=== PATIENT | male | born 1980 | race Caucasian/White ===

== ENCOUNTER 2016-08-09 16:47 | Emergency (ER) | payer MEDICAID, OTHER ==
[~2016-08-09] VITALS: Ht 185.4 cm; Wt 93.0 kg
[~2016-08-09 16:47] MED LIST: CELE20TA PO; GABA300C3 PO; HYDR-3533 PO; INDO50 PO; PROM25SU8 PO; TRAZ150T75 PO
[2016-08-09 17:13] VITALS: BP 124/76; PULSE 75; RESP 16; TEMP 98.6; O2SAT 98
[2016-08-09 18:31] VITALS: BP 137/87; PULSE 55; RESP 16; O2SAT 100
[2016-08-09] MEDS ORDERED: CELE20TA PO (18:31)
--- NOTE | 2016-08-09 18:35 | PD ---
HPI Chief Complaint: GI Complaint Time Seen by Provider: 18:18 Travel History International Travel<30 days: No Contact w/Intl Traveler<30days: No Traveled to known affect area: No History of Present Illness HPI This 35-year-old female is complaining of abdominal pain. He says he had pain like this before related to diverticulitis. The pain is mostly in the left lower quadrant. Been going on for a day or so. There has been no vomiting. He 's been having diarrhea for a while. He is not aware of any fever or chills. He has no history of abdominal surgery. He says the pain is moderate severe at times. He says he has had some blood in his stool PFSH Past Medical History Hx Anticoagulant Therapy: No Depression: Yes Diabetes: No Diminished Hearing: No Diverticulitis: Yes Musculoskeletal: Yes (chronic right shoulder pain) Immunizations Current: Yes Tetanus Vaccination: < 5 Years Social History Alcohol Use: No (denies) Tobacco Use: Yes (8 cigs/day) Substance Use: No (HX of ETOH ABUSE) Allergies-Medications (Allergen,Severity, Reaction): Coded Allergies: Effexor (Verified Allergy, Severe, Hallucinations, 08/09/16) Toradol (Verified Allergy, Severe, FLUSHED FACE PER PT. MAKES HIM FEEL WIERD, 08/09/16) Reported Meds & Prescriptions Reported Meds & Active Scripts Active Reported Celexa (Citalopram Hydrobromide) 20 Mg Tab 20 Mg PO DAILY Review of Systems General / Constitutional: No: Fever, Chills Eyes: No: Diploplia, Blurred Vision HENT: No: Headaches, Vertigo Cardiovascular: No: Chest Pain or Discomfort, Palpitations Respiratory: No: Shortness of Breath Gastrointestinal: Positive: Diarrhea, Abdominal Pain Genitourinary: No: Urgency, Frequency Musculoskeletal: No: Myalgias, Arthralgias Skin: No Rash, No Itching Neurologic: No: Weakness Endocrine: No: Heat Intolerance Hematologic/Lymphatic: No: Easy Bruising Physical Exam Narrative GENERAL: Well-developed male SKIN: Warm and dry. HEAD: Atraumatic. Normocephalic. EYES: Pupils equal and round. No scleral icterus. No injection or drainage. ENT: No nasal bleeding or discharge. Mucous membranes pink and moist. NECK: Trachea midline. No JVD. CARDIOVASCULAR: Regular rate and rhythm. No murmur appreciated. RESPIRATORY: No accessory muscle use. Clear to auscultation. Breath sounds equal bilaterally. GASTROINTESTINAL: Abdomen soft, there is some left lower quadrant tenderness nondistended. Hepatic and splenic margins not palpable. Rectal exam stool is brown and guaiac-negative MUSCULOSKELETAL: No obvious deformities. No clubbing. No cyanosis. No edema. NEUROLOGICAL: Awake and alert. No obvious cranial nerve deficits. Motor grossly within normal limits. Normal speech. PSYCHIATRIC: Appropriate mood and affect; insight and judgment normal. Data Data Last Documented VS Vital Signs Date Time Temp Pulse Resp B/P Pulse Ox O2 Delivery O2 Flow Rate FiO2 08/09/16 19:28 56 18 121/64 96 Room Air 08/09/16 17:13 98.6 Orders Complete Blood Count With Diff (08/09/16 18:31) Comprehensive Metabolic Panel (08/09/16 18:31) Urinalysis - C+S If Indicated (08/09/16 18:31) Ct Abd/Pel W Iv Contrast(Rout) (08/09/16 18:31) Iv Access Insert/Monitor (08/09/16 18:31) Ecg Monitoring (08/09/16 18:31) Oximetry (08/09/16 18:31) Sodium Chloride 0.9% Flush (Ns Flush) (08/09/16 18:45) Sodium Chlor 0.9% 1000 Ml Inj (Ns 1000 M (08/09/16 18:45) Ondansetron Inj (Zofran Inj) (08/09/16 18:45) Hydromorphone Pf Inj (Dilaudid Pf Inj) (08/09/16 18:45) Iohexol 350 Inj (Omnipaque 350 Inj) (08/09/16 19:47) Hydromorphone Pf Inj (Dilaudid Pf Inj) (08/09/16 20:30) Amoxicil-Clavulanate (Augmentin) (08/09/16 21:00) Labs Laboratory Tests Test 08/09/16 18:40 White Blood Count 8.8 TH/MM3 Red Blood Count 5.14 MIL/MM3 Hemoglobin 15.4 GM/DL Hematocrit 45.9 % Mean Corpuscular Volume 89.2 FL Mean Corpuscular Hemoglobin 29.9 PG Mean Corpuscular Hemoglobin 33.5 % Concent Red Cell Distribution Width 12.1 % Platelet Count 190 TH/MM3 Mean Platelet Volume 8.9 FL Neutrophils (%) (Auto) 55.6 % Lymphocytes (%) (Auto) 34.1 % Monocytes (%) (Auto) 7.4 % Eosinophils (%) (Auto) 2.3 % Basophils (%) (Auto) 0.6 % Neutrophils # (Auto) 4.9 TH/MM3 Lymphocytes # (Auto) 3.0 TH/MM3 Monocytes # (Auto) 0.6 TH/MM3 Eosinophils # (Auto) 0.2 TH/MM3 Basophils # (Auto) 0.1 TH/MM3 CBC Comment DIFF FINAL Differential Comment Sodium Level 138 MEQ/L Potassium Level 3.8 MEQ/L Chloride Level 104 MEQ/L Carbon Dioxide Level 25.1 MEQ/L Anion Gap 9 MEQ/L Blood Urea Nitrogen 13 MG/DL Creatinine 1.10 MG/DL Estimat Glomerular Filtration 76 ML/MIN Rate Random Glucose 91 MG/DL Calcium Level 9.4 MG/DL Total Bilirubin 0.4 MG/DL Aspartate Amino Transf 13 U/L (AST/SGOT) Alanine Aminotransferase 31 U/L (ALT/SGPT) Alkaline Phosphatase 44 U/L Total Protein 7.4 GM/DL Albumin 4.1 GM/DL [facility] Medical Decision Making Medical Screen Exam Complete: Yes Emergency Medical Condition: Yes Medical Record Reviewed: Yes Differential Diagnosis Differential includes diverticulitis, nonspecific abdominal pain, bowel obstruction Narrative Course ED shows diverticulosis without focal inflammation. Patient has had pain like this in the past associated with diverticulitis and I will treat him for diverticulitis. Diagnosis Primary Impression: Diverticulitis Qualified Code: K57.32 - Diverticulitis of large intestine without perforation or abscess without bleeding Scripts Oxycodone-Acetaminophen (Percocet)5-325 mg Tab1-2 Tab PO Q6H PRN (PAIN) #20 TAB Ref 0 Prov:Wei Meléndez MD 08/09/16 Amoxicillin-Clavulanate (Augmentin)500-125 mg [id number] Mg PO Q8H #30 TAB Ref 0 Prov:Wei Mleéndez MD 08/09/16 Disposition: 01 DISCHARGE HOME Condition: Stable Wei Meléndez MD Aug 09, 2016 18:35
[2016-08-09] MEDS ORDERED: SODIUM CHLORIDE 0.9% FLUSH 5 ML FLUSH IVF PRN (18:45)
[2016-08-09] MEDS ORDERED: ONDANSETRON HCL 4 MG/2 ML VIAL IV PUSH ONE (18:45)
[2016-08-09] MEDS ORDERED: HYDROmorphone HCL PF 1 MG/ML VIAL IV PUSH ONE ×2 (18:45→20:30)
[2016-08-09] MEDS ORDERED: SODIUM CHLOR 0.9% 1000 ML INJ 1,000 ML IV ONE (18:45)
[2016-08-09 18:50] LABS: AUTOMATED NEUTROPHIL # 4.9 TH/MM3 (1.8-7.7); BASOPHIL # 0.1 TH/MM3 (0-0.2); BASOPHIL % 0.6 % (0.0-2.0); EOSINOPHIL # 0.2 TH/MM3 (0-0.4); EOSINOPHIL % 2.3 % (0.0-4.0); HEMATOCRIT 45.9 % (39.0-51.0); HEMO FLAGS DIFF FINAL; LYMPH % 34.1 % (9.0-44.0); MEAN CELL VOLUME 89.2 FL (80.0-100.0); MEAN CORPUSCULAR HEMOGLOBIN 29.9 PG (27.0-34.0); MEAN CORPUSCULAR HGB CONC 33.5 % (32.0-36.0); MONO % 7.4 % (0.0-8.0); NEUT % 55.6 % (16.0-70.0); PLATELET COUNT 190 TH/MM3 (150-450); RED BLOOD COUNT 5.14 MIL/MM3 (4.50-5.90); RED CELL DISTRIBUTION WIDTH 12.1 % (11.6-17.2); WHITE BLOOD COUNT 8.8 TH/MM3 (4.0-11.0)
[2016-08-09 18:56] VITALS: RESP 16; O2SAT 98
[2016-08-09 18:59] LABS: CHLORIDE 104 MEQ/L (98-107); POTASSIUM 3.8 MEQ/L (3.5-5.1); SODIUM (NA) 138 MEQ/L (136-145)
[2016-08-09 19:02] LABS: ANION GAP 9 MEQ/L (5-15); BICARBONATE 25.1 MEQ/L (21.0-32.0)
[2016-08-09 19:03] LABS: BLOOD UREA NITROGEN 13 MG/DL (7-18)
[2016-08-09 19:06] LABS: ALT (GPT) 31 U/L (12-78); AST (GOT) 13 U/L (15-37); GLOMERULAR FILTRATION RATE 76 ML/MIN (>89)
[2016-08-09 19:07] LABS: TOTAL BILIRUBIN ADULT 0.4 MG/DL (0.2-1.0)
[2016-08-09 19:08] LABS: ALKALINE PHOSPHATASE 44 U/L (45-117)
[2016-08-09 19:28] VITALS: BP 121/64; PULSE 56; RESP 18; O2SAT 96
[2016-08-09] MEDS ORDERED: IOHEXOL 350 MG/ML 10 ML VIAL (for RAD DIAG) IV ONE (19:47)
--- NOTE | 2016-08-09 20:20 | RADHPO ---
EXAM DATE/TIME: 08/09/2016 19:32 [facility] COMPARISON: CT ABDOMEN & PELVIS W CONTRAST, January 28, 2015, 11:09. INDICATIONS : Lower abdomen pain, rectal bleeding. IV CONTRAST: 67 cc Omnipaque 350 (iohexol) IV ORAL CONTRAST: No oral contrast ingested. RADIATION DOSE: 13.97 CTDIvol (mGy) MEDICAL HISTORY : Diverticulitis. SURGICAL HISTORY : None. ENCOUNTER: Initial ACUITY: 1 day PAIN SCALE: 5/10 LOCATION: cranial TECHNIQUE: Volumetric scanning of the abdomen and pelvis was performed. Using automated exposure control and ad justment of the mA and/or kV according to patient size, radiation dose was kept as low as reasonably achievable to obtain optimal diagnostic quality images. FINDINGS: LOWER LUNGS: The visualized lower lungs are clear. LIVER: Homogeneous density without lesion. There is no dilation of the biliary tree. No calcified gallston es. SPLEEN: Normal size without lesion. PANCREAS: Within normal limits. KIDNEYS: Normal in size and shape. There is no mass, stone or hydronephrosis. ADRENAL GLANDS: Within normal limits. VASCULAR: There is no aortic aneurysm. BOWEL/MESENTERY: Mild diverticulosis is seen along the sigmoid colon. There are no active inflammatory changes. The st omach, small bowel, and colon demonstrate no acute abnormality. There is no free intraperitoneal air or fluid. ABDOMINAL WALL: Within normal limits. RETROPERITONEUM: There is no lymphadenopathy. BLADDER: No wall thickening or mass. REPRODUCTIVE: Within normal limits. INGUINAL: There is no lymphadenopathy or hernia. MUSCULOSKELETAL: Within normal limits for patient age. CONCLUSION: Diverticulosis without evidence of active inflammation. No other significant abnormality. Gael Randall MD on August 09, 2016 at 20:16 Board Certified Radiologist. This report was verified electronically.
[2016-08-09 20:50] VITALS: BP 124/72; PULSE 52; RESP 18; O2SAT 98
[2016-08-09] MEDS ORDERED: AUGM500T7 PO (20:53)
[2016-08-09] MEDS ORDERED: PERC5TAB12 PO (20:53)
[2016-08-09] MEDS ORDERED: AMOXICILLIN/CLAVULANATE K 500 MG TAB PO ONE (21:00)
[2016-08-09 21:04] LABS: BLOOD, URINE NEG (NEG); GLUCOSE,URINE NEG (NEG); KETONE, URINE NEG (NEG); NITRITE,URINE NEG (NEG); PH, URINE 6.5 (5.0-8.5)
[2016-08-09 21:07] LABS: URINE COLOR YELLOW (YELLW/STRAW)
[2016-08-09 21:09] LABS: COMMENT (UR) CULT NOT INDICATED; CULTURE IF INDICATED CULT NOT INDICATED; SQUAMOUS EPITHELIAL CELL URINE 0-5 /hpf (0-5); WBC, URINE 0-2 /hpf (0-5)
[2016-08-09 21:48] VITALS: BP 118/70; PULSE 55; RESP 18; O2SAT 98
== END 2016-08-09 21:51 | disposition home or self-care (01) ==
LOC: PHED 16:47
DX: K57.32 Diverticulitis of large intestine without perforation or abscess without bleeding (principal); K92.1 Melena; F17.210 Nicotine dependence, cigarettes, uncomplicated
CPT/HCPCS: 74177; 80053; 81001; 85025; 96361; 96374; 96375; 96376; 99284; J1170; J2405; J7030; Q9967

== ENCOUNTER 2016-10-11 15:02 | Emergency (ER) | payer MEDICAID, OTHER ==
[~2016-10-11 15:02] MED LIST changes: +AUGM500T7 PO; -GABA300C3 PO; -HYDR-3533 PO; -INDO50 PO; +PERC5TAB12 PO; -PROM25SU8 PO; -TRAZ150T75 PO
[2016-10-11 15:07] VITALS: BP 120/74; PULSE 88; RESP 16; TEMP 98.5; O2SAT 97
[2016-10-11] MEDS ORDERED: TRAZ100T4 PO (15:19)
[2016-10-11] MEDS ORDERED: ONDANSETRON HCL 4 MG/2 ML VIAL IVP ONE (15:30)
[2016-10-11] MEDS ORDERED: SODIUM CHLORIDE 0.9% FLUSH 10 ML FLUSH IV FLUSH PRN (15:30)
[2016-10-11] MEDS ORDERED: MORPHINE SULFATE 4 MG/ML INJ IV PUSH ONE (15:30)
[2016-10-11 15:38] LABS: AUTOMATED NEUTROPHIL # 6.7 TH/MM3 (1.8-7.7); BASOPHIL # 0.1 TH/MM3 (0-0.2); BASOPHIL % 0.7 % (0.0-2.0); EOSINOPHIL # 0.1 TH/MM3 (0-0.4); EOSINOPHIL % 1.1 % (0.0-4.0); HEMATOCRIT 45.1 % (39.0-51.0); HEMO FLAGS DIFF FINAL; LYMPH % 28.7 % (9.0-44.0); LYMPHOCYTE # 3.1 TH/MM3 (1.0-4.8); MEAN CELL VOLUME 86.3 FL (80.0-100.0); MEAN CORPUSCULAR HEMOGLOBIN 28.7 PG (27.0-34.0); MEAN CORPUSCULAR HGB CONC 33.3 % (32.0-36.0); MONO % 6.3 % (0.0-8.0); NEUT % 63.2 % (16.0-70.0); PLATELET COUNT 177 TH/MM3 (150-450); RED BLOOD COUNT 5.22 MIL/MM3 (4.50-5.90); RED CELL DISTRIBUTION WIDTH 11.9 % (11.6-17.2); WHITE BLOOD COUNT 10.7 TH/MM3 (4.0-11.0)
[2016-10-11 15:46] LABS: CHLORIDE 107 MEQ/L (98-107); POTASSIUM 3.2 MEQ/L (3.5-5.1); SODIUM (NA) 141 MEQ/L (136-145)
[2016-10-11 15:49] LABS: ANION GAP 12 MEQ/L (5-15); BICARBONATE 22.3 MEQ/L (21.0-32.0); BLOOD UREA NITROGEN 14 MG/DL (7-18)
[2016-10-11 15:52] LABS: ALT (GPT) 29 U/L (12-78); AST (GOT) 15 U/L (15-37); GLOMERULAR FILTRATION RATE 75 ML/MIN (>89)
[2016-10-11 15:54] LABS: TOTAL BILIRUBIN ADULT 0.6 MG/DL (0.2-1.0)
[2016-10-11 15:55] LABS: ALKALINE PHOSPHATASE 47 U/L (45-117)
[2016-10-11] MEDS ORDERED: ZOFR4TAB PO (15:57)
[2016-10-11] MEDS ORDERED: CODE60 PO (15:57)
--- NOTE | 2016-10-11 16:01 | PD ---
HPI Chief Complaint: Abdominal Pain Time Seen by Provider: 15:12 Travel History International Travel<30 days: No Contact w/Intl Traveler<30days: No Traveled to known affect area: No History of Present Illness HPI This patient complains of abdominal cramps and nausea and diarrhea. 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 He then goes on to admit that he had some alcohol this morning. Denies fever. No rectal bleeding. Symptoms severity is moderate. Duration 3 days. No alleviating factors PFSH Past Medical History Hx Anticoagulant Therapy: No Depression: Yes Diabetes: No Diminished Hearing: No Diverticulitis: Yes Musculoskeletal: Yes (chronic right shoulder pain) Immunizations Current: Yes Tetanus Vaccination: > 5 Years Influenza Vaccination: Yes Social History Alcohol Use: No (FORMER ETOH ABUSE) Tobacco Use: Yes (8 cigs/day) Substance Use: No (HX of ETOH ABUSE) Allergies-Medications (Allergen,Severity, Reaction): Coded Allergies: Effexor (Verified Allergy, Severe, Hallucinations, 10/11/16) Toradol (Verified Allergy, Severe, FLUSHED FACE PER PT. MAKES HIM FEEL WIERD, 10/11/16) Reported Meds & Prescriptions Reported Meds & Active Scripts Active Reported Trazodone (Trazodone HCl) 100 Mg Tab 100 Mg PO HS Celexa (Citalopram Hydrobromide) 20 Mg Tab 20 Mg PO DAILY Review of Systems General / Constitutional: No: Fever Eyes: No: Visual changes HENT: No: Headaches Cardiovascular: No: Chest Pain or Discomfort Respiratory: No: Shortness of Breath Gastrointestinal: Positive: Nausea, Diarrhea, Abdominal Pain Genitourinary: No: Dysuria Musculoskeletal: No: Pain Skin: No Rash Neurologic: No: Weakness Psychiatric: No: Depression Endocrine: No: Polydipsia Hematologic/Lymphatic: No: Easy Bruising Physical Exam Narrative GENERAL: Well-nourished, well-developed patient in no apparent distress. SKIN: Focused skin assessment reveals no rash and nodules. Skin is Warm and dry. HEAD: Atraumatic. Normocephalic. EYES: Pupils equal and round. No scleral icterus. No injection or drainage. ENT: No nasal bleeding or discharge. Mucous membranes pink and moist. NECK: Trachea midline. No JVD. CARDIOVASCULAR: Regular rate and rhythm. No murmur appreciated. RESPIRATORY: No accessory muscle use. Clear to auscultation. Breath sounds equal bilaterally. GASTROINTESTINAL: Abdomen soft, non-tender, nondistended. Hepatic and splenic margins not palpable. MUSCULOSKELETAL: No obvious deformities. No clubbing. No cyanosis. No edema. NEUROLOGICAL: Awake and alert. No obvious cranial nerve deficits. Motor grossly within normal limits. Normal speech. PSYCHIATRIC: Appropriate mood and affect; insight and judgment normal. Data Data Last Documented VS Vital Signs Date Time Temp Pulse Resp B/P Pulse Ox O2 Delivery O2 Flow Rate FiO2 10/11/16 15:07 98.5 88 16 120/74 97 Orders Complete Blood Count With Diff (10/11/16 15:22) Comprehensive Metabolic Panel (10/11/16 15:22) Lipase (10/11/16 15:22) Iv Access Insert/Monitor (10/11/16 15:22) NPO (10/11/16 15:22) Morphine Inj (Morphine Inj) (10/11/16 15:30) Ondansetron Inj (Zofran Inj) (10/11/16 15:30) Sodium Chloride 0.9% Flush (Ns Flush) (10/11/16 15:30) Alcohol (Ethanol) (10/11/16 15:22) Labs Laboratory Tests Test 10/11/16 15:30 White Blood Count 10.7 TH/MM3 Red Blood Count 5.22 MIL/MM3 Hemoglobin 15.0 GM/DL Hematocrit 45.1 % Mean Corpuscular Volume 86.3 FL Mean Corpuscular Hemoglobin 28.7 PG Mean Corpuscular Hemoglobin 33.3 % Concent Red Cell Distribution Width 11.9 % Platelet Count 177 TH/MM3 Mean Platelet Volume 8.6 FL Neutrophils (%) (Auto) 63.2 % Lymphocytes (%) (Auto) 28.7 % Monocytes (%) (Auto) 6.3 % Eosinophils (%) (Auto) 1.1 % Basophils (%) (Auto) 0.7 % Neutrophils # (Auto) 6.7 TH/MM3 Lymphocytes # (Auto) 3.1 TH/MM3 Monocytes # (Auto) 0.7 TH/MM3 Eosinophils # (Auto) 0.1 TH/MM3 Basophils # (Auto) 0.1 TH/MM3 CBC Comment DIFF FINAL Differential Comment Sodium Level 141 MEQ/L Potassium Level 3.2 MEQ/L Chloride Level 107 MEQ/L Carbon Dioxide Level 22.3 MEQ/L Anion Gap 12 MEQ/L Blood Urea Nitrogen 14 MG/DL Creatinine 1.10 MG/DL Estimat Glomerular Filtration 75 ML/MIN Rate Random Glucose 120 MG/DL Calcium Level 8.5 MG/DL Total Bilirubin 0.6 MG/DL Aspartate Amino Transf 15 U/L (AST/SGOT) Alanine Aminotransferase 29 U/L (ALT/SGPT) Alkaline Phosphatase 47 U/L Total Protein 7.1 GM/DL Albumin 3.8 GM/DL Lipase 658 U/L Ethyl Alcohol Level 115 MG/DL [facility] Medical Decision Making Medical Screen Exam Complete: Yes Emergency Medical Condition: Yes Medical Record Reviewed: Yes Differential Diagnosis Colitis, pancreatitis hepatitis Narrative Course I have reviewed the patient's electronic medical record. Patient was here in July had a CT scan showing only diverticulosis IV placed Gave him 1 dose of morphine and Zofran for symptom relief His abdomen is soft and benign Vital signs are normal CBC is normal Lipase is a tiny elevation, probably minimal clinical significance as he has no tenderness in the epigastrium or right upper quadrant Metabolic profile reveals minor hypokalemia of 3.2. I suggested a replacement dose but he declines that Liver function tests are normal I wrote him some Zofran codeine to use as needed for symptom relief. Advised to avoid Tylenol products Recommend primary care and GI follow-up Diagnosis Primary Impression: Abdominal pain Qualified Code: R10.84 - Generalized abdominal pain Additional Instructions: The patient was advised to follow up with their primary care and GI physician and return if they worsen. The patient was warned about potential sedation for the medications they will receive on prescription. Med/Other Pt SpecificInfo: Prescription(s) given Scripts Ondansetron (Zofran)4 Mg Tab4 Mg PO Q6HR PRN (NAUSEA OR VOMITING) #12 TAB Ref 0 Prov:Anders Lei MD 10/11/16 Codeine Sulfate 60 Mg Tab60 Mg PO Q6H PRN (PAIN) #15 TAB Ref 0 Prov:Anders Lei MD 10/11/16 Disposition: 01 DISCHARGE HOME Condition: Stable Anders Lei MD October 11, 2016 16:01
[2016-10-11 16:15] VITALS: BP 126/71
== END 2016-10-11 16:21 | disposition home or self-care (01) ==
LOC: PHED 15:02
DX: R10.84 Generalized abdominal pain (principal); Z79.899 Other long term (current) drug therapy
CPT/HCPCS: 80053; 80307; 83690; 85025; 96374; 96375; 99284; J2270; J2405

== ENCOUNTER 2016-12-01 18:44 | Emergency (ER) | payer MEDICAID ==
[~2016-12-01] VITALS: Ht 188 cm; Wt 80.0 kg
[~2016-12-01 18:44] MED LIST changes: -AUGM500T7 PO; +CODE60 PO; -PERC5TAB12 PO; +TRAZ100T4 PO; +ZOFR4TAB PO
[2016-12-01 18:50] VITALS: BP 135/83; PULSE 117; RESP 18; TEMP 98.4; O2SAT 97
[2016-12-01] MEDS ORDERED: TRAZ300T2 PO (18:50)
[2016-12-01 19:15] VITALS: BP 122/76; PULSE 79; RESP 16; O2SAT 98
[2016-12-01 19:30] VITALS: BP 122/76; PULSE 79; RESP 16; O2SAT 98
[2016-12-01] MEDS ORDERED: SODIUM CHLOR 0.9% 1000 ML INJ 1,000 ML IV ONE (19:30)
[2016-12-01] MEDS ORDERED: LORazepam 2 MG/ML VIAL IV PUSH ONE ×2 (19:30→20:15)
[2016-12-01] MEDS ORDERED: ONDANSETRON HCL 4 MG/2 ML VIAL IV PUSH ONE (19:30)
--- NOTE | 2016-12-01 19:30 | PD ---
HPI Chief Complaint: Alcohol/Drug Intoxication Time Seen by Provider: 19:22 Travel History International Travel<30 days: No Contact w/Intl Traveler<30days: No Traveled to known affect area: No History of Present Illness HPI 36-year-old male presents to the emergency department for complaint of generalized weakness abdominal discomfort tachycardia dehydration nausea vomiting 3 without bilious emesis coffee-ground emesis or hematemesis this diarrheal stool crampy abdominal pain symptoms are present for 1 day. Patient admits to opiate abuse and alcohol abuse. Patient states that he takes "Roxies 30 tablets a day" that he purchases off the street and used to drink alcohol heavily but has been trying to discontinue opiate abuse on his own so has started to supplement with alcohol. Patient did drink. Today. Patient is also purchases Street benzodiazepine to help with his symptoms. Patient states that he attempted to go to [facility] for assistance with detox but there were no beds available so presents here for further evaluation and intervention. Patient is not suicidal or homicidal. Patient here voluntarily seeking help. Patient also has history of diverticulosis and previous diverticulitis. No history of peptic ulcer disease or pancreatitis reportedly. 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 ) Immunizations Current: Yes Tetanus Vaccination: < 5 Years Influenza Vaccination: No Social History Alcohol Use: Yes ("Former alcoholic" drank yesterday and today first time in a month ) Tobacco Use: Yes (1 PPD) Substance Use: Yes (Marijuana, Roxicodone, Klonopin today ) Allergies-Medications (Allergen,Severity, Reaction): Coded Allergies: Toradol (Verified Allergy, Severe, Flushed face, "makes me feel weird", ) Effexor (Verified Adverse Reaction, Severe, Hallucinations, 12/01/16) Imipramine (Verified Adverse Reaction, Severe, "Makes me go crazy", ) Reported Meds & Prescriptions Reported Meds & Active Scripts Active Phenergan (Promethazine HCl) 25 Mg Tablet 25 Mg PO Q6H PRN Chlordiazepoxide HCl 10 Mg Capsule 10 Mg PO Q6HR PRN Reported Trazodone (Trazodone HCl) 300 Mg Tab 300 Mg PO HS Review of Systems Except as stated in HPI: all other systems reviewed are Neg General / Constitutional: No: Fever, Chills HENT: No: Congestion Cardiovascular: Positive: Tachycardia, Diaphoresis, No: Chest Pain or Discomfort, Palpitations, Syncope, Dyspnea on exertion, Edema Respiratory: No: Cough, Shortness of Breath, Orthopnea, Hemoptysis, Pleuritic Pain Gastrointestinal: Positive: Nausea, Vomiting, Diarrhea, Abdominal Pain, No: Hematemesis, Hematochezia, Constipation (intermittent cramping), Indigestion, Loss of Appetite Genitourinary: No: Urgency, Frequency, Dysuria Musculoskeletal: No: Myalgias, Arthralgias Skin: No Rash Neurologic: No: Weakness, Dizziness, Syncope, Focal Abnormalities, Coordination Problem Psychiatric: Positive: Anxiety, Substance Abuse, No: Depression, Suicidal Ideations, Homicidal Ideation Endocrine: No: Heat Intolerance Hematologic/Lymphatic: No: Easy Bruising Physical Exam Narrative GENERAL: Well-developed well-nourished male in no acute distress no respiratory distress appears mildly anxious; no tremulousness; GCS 15 SKIN: Warm and dry. HEAD: Normocephalic. EYES: No scleral icterus. No injection or drainage. NECK: Supple, trachea midline. No JVD or lymphadenopathy. CARDIOVASCULAR: Regular rate and rhythm without murmurs, gallops, or rubs. RESPIRATORY: Breath sounds equal bilaterally. No accessory muscle use. GASTROINTESTINAL: Abdomen soft, non-tender, nondistended. MUSCULOSKELETAL: No cyanosis, or edema. BACK: Nontender without obvious deformity. No CVA tenderness. Data Data Last Documented VS Vital Signs Date Time Temp Pulse Resp B/P Pulse Ox O2 Delivery O2 Flow Rate FiO2 12/01/16 20:58 76 16 109/72 95 Room Air 12/01/16 18:50 98.4 Orders Complete Blood Count With Diff (12/01/16 19:23) Comprehensive Metabolic Panel (12/01/16 19:23) Urinalysis - C+S If Indicated (12/01/16 19:23) Electrocardiogram (12/01/16 19:23) Oximetry (12/01/16 19:23) Iv Access Insert/Monitor (12/01/16 19:23) Ecg Monitoring (12/01/16 19:23) Drug Screen, Random Urine (12/01/16 19:23) Alcohol (Ethanol) (12/01/16 19:23) Magnesium (Mg) (12/01/16 19:23) Sodium Chlor 0.9% 1000 Ml Inj (Ns 1000 M (12/01/16 19:30) Lorazepam Inj (Ativan Inj) (12/01/16 19:30) Ondansetron Inj (Zofran Inj) (12/01/16 19:30) Lipase (12/01/16 19:23) Pantoprazole Inj (Protonix Inj) (12/01/16 20:15) Lorazepam Inj (Ativan Inj) (12/01/16 20:15) Potassium Chloride (Kcl) (12/01/16 20:15) Chest, Single Ap (12/01/16 ) Labs Laboratory Tests Test 12/01/16 19:30 White Blood Count 9.0 TH/MM3 Red Blood Count 5.44 MIL/MM3 Hemoglobin 16.2 GM/DL Hematocrit 47.4 % Mean Corpuscular Volume 87.1 FL Mean Corpuscular Hemoglobin 29.8 PG Mean Corpuscular Hemoglobin 34.2 % Concent Red Cell Distribution Width 13.0 % Platelet Count 210 TH/MM3 Mean Platelet Volume 9.3 FL Neutrophils (%) (Auto) 60.7 % Lymphocytes (%) (Auto) 33.4 % Monocytes (%) (Auto) 4.5 % Eosinophils (%) (Auto) 0.3 % Basophils (%) (Auto) 1.1 % Neutrophils # (Auto) 5.5 TH/MM3 Lymphocytes # (Auto) 3.0 TH/MM3 Monocytes # (Auto) 0.4 TH/MM3 Eosinophils # (Auto) 0.0 TH/MM3 Basophils # (Auto) 0.1 TH/MM3 CBC Comment DIFF FINAL Differential Comment Urine Color YELLOW Urine Turbidity CLEAR Urine pH 5.5 Urine Specific [place] 1.026 Urine Protein NEG mg/dL Urine Glucose (UA) NEG mg/dL Urine Ketones 15 mg/dL Urine Occult Blood NEG Urine Nitrite NEG Urine Bilirubin NEG Urine Leukocyte Esterase NEG Urine Squamous Epithelial 0-5 /hpf Cells Microscopic Urinalysis Comment CULT NOT INDICATED Sodium Level 143 MEQ/L Potassium Level 3.2 MEQ/L Chloride Level 108 MEQ/L Carbon Dioxide Level 20.2 MEQ/L Anion Gap 15 MEQ/L Blood Urea Nitrogen 13 MG/DL Creatinine 1.10 MG/DL Estimat Glomerular Filtration 75 ML/MIN Rate Random Glucose 158 MG/DL Calcium Level 9.1 MG/DL Magnesium Level 2.0 MG/DL Total Bilirubin 0.5 MG/DL Aspartate Amino Transf 12 U/L (AST/SGOT) Alanine Aminotransferase 26 U/L (ALT/SGPT) Alkaline Phosphatase 49 U/L Total Protein 7.8 GM/DL Albumin 4.2 GM/DL Lipase 161 U/L Urine Opiates Screen NEG Urine Barbiturates Screen NEG Urine Amphetamines Screen NEG Urine Benzodiazepines Screen POS Urine Cocaine Screen NEG Urine Cannabinoids Screen POS Ethyl Alcohol Level 66 MG/DL [facility] Medical Decision Making Medical Screen Exam Complete: Yes Emergency Medical Condition: Yes Medical Record Reviewed: Yes Interpretation(s) EKG: Sinus tachycardia rate [address] elevation or acute injury pattern change age-indeterminate QS inferiorly Last Impressions Chest X-Ray 12/01/16 0000 Signed Impressions: Service Date/Time: Tuesday, December 01, 2016 20:40 - CONCLUSION: No acute cardiopulmonary abnormality is identified. Jesús Barry MD CBC & BMP Diagram 12/01/16 19:30 Serum alcohol: 66 Urine drug screen positive for benzodiazepines and cannabinoids Differential Diagnosis Polysubstance abuse alcohol abuse opiate withdrawal alcohol withdrawal gastritis peptic ulcer disease hepatitis pancreatitis dehydration any electrolytic disturbance Narrative Course Patient placed on monitoring specialist IV access obtained specimens collected and sent for resulting patient ordered Ativan 1 mg IV 1 L normal saline bolus Zofran 4 mg IV EKG sinus tachycardia no acute ST elevation or injury pattern change or ectopy noted Patient resting more comfortably after Ativan although does remain mildly agitated therefore additional Ativan administered. Patient identified to have potassium of 3.2 oral potassium replacement provided and tolerated well no further nausea and/or vomiting. Patient rating for remainder of labs. Family at bedside patient resting comfortably At 9:30 PM patient feels clinically improved and stable for outpatient management vital signs are in normal range lab values are found to be grossly within normal limits except for mild decrease bicarbonate 20.2 and hypokalemia replaced with oral potassium. Patient is aware of need to increase potassium table foods and beverages to dietary intake as well as given prescription for Librium and Zofran to take as needed and encouraged again to attempt to follow- up with [facility]. Diagnosis Primary Impression: Polysubstance (including opioids) dependence, daily use Referrals: [facility] 1 day Patient Instructions: General Instructions Additional Instructions: follow up with [facility] take medications as prescribed take zofran as needed for nausea or vomiting Librium as needed for anxiety or agitation Return to the emergency department for any concerns or change in condition Med/Other Pt SpecificInfo: Prescription(s) given Scripts Promethazine (Phenergan)25 Mg [id number] Mg PO Q6H PRN (NAUSEA OR VOMITING) #10 TAB Ref 0 Prov:Torie Adair MD 12/01/16 Chlordiazepoxide HCl 10 Mg [id number] Mg PO Q6HR PRN (ANXIETY AND/OR AGITATION) # 12 Prov:Torie Adair MD 12/01/16 Disposition: 01 DISCHARGE HOME Condition: Stable Torie Adair MD Dec 01, 2016 19:30
[2016-12-01 19:45] LABS: AUTOMATED NEUTROPHIL # 5.5 TH/MM3 (1.8-7.7); BASOPHIL # 0.1 TH/MM3 (0-0.2); BASOPHIL % 1.1 % (0.0-2.0); EOSINOPHIL % 0.3 % (0.0-4.0); HEMATOCRIT 47.4 % (39.0-51.0); HEMO FLAGS DIFF FINAL; LYMPH % 33.4 % (9.0-44.0); MEAN CELL VOLUME 87.1 FL (80.0-100.0); MEAN CORPUSCULAR HEMOGLOBIN 29.8 PG (27.0-34.0); MEAN CORPUSCULAR HGB CONC 34.2 % (32.0-36.0); MONO % 4.5 % (0.0-8.0); NEUT % 60.7 % (16.0-70.0); PLATELET COUNT 210 TH/MM3 (150-450); RED BLOOD COUNT 5.44 MIL/MM3 (4.50-5.90)
[2016-12-01 19:52] LABS: BLOOD, URINE NEG (NEG); CHLORIDE 108 MEQ/L (98-107); GLUCOSE,URINE NEG (NEG); KETONE, URINE 15 mg/dL (NEG); NITRITE,URINE NEG (NEG); PH, URINE 5.5 (5.0-8.5); POTASSIUM 3.2 MEQ/L (3.5-5.1); SODIUM (NA) 143 MEQ/L (136-145)
[2016-12-01 19:53] LABS: AMPHETAMINE, URINE NEG (NEG); BARBITURATES, URINE NEG (NEG); COCAINE, URINE NEG (NEG)
[2016-12-01 19:56] LABS: ANION GAP 15 MEQ/L (5-15); BICARBONATE 20.2 MEQ/L (21.0-32.0); BLOOD UREA NITROGEN 13 MG/DL (7-18)
[2016-12-01 19:58] LABS: ALT (GPT) 26 U/L (12-78)
[2016-12-01 19:59] LABS: AST (GOT) 12 U/L (15-37); GLOMERULAR FILTRATION RATE 75 ML/MIN (>89)
[2016-12-01 20:00] LABS: TOTAL BILIRUBIN ADULT 0.5 MG/DL (0.2-1.0)
[2016-12-01 20:01] LABS: ALKALINE PHOSPHATASE 49 U/L (45-117); URINE COLOR YELLOW (YELLW/STRAW)
[2016-12-01 20:03] LABS: COMMENT (UR) CULT NOT INDICATED; CULTURE IF INDICATED CULT NOT INDICATED; SQUAMOUS EPITHELIAL CELL URINE 0-5 /hpf (0-5)
[2016-12-01] MEDS ORDERED: PANTOPRAZOLE SODIUM 40 MG VIAL IV PUSH ONE (20:15)
[2016-12-01] MEDS ORDERED: POTASSIUM CHLORIDE 20 MEQ CONTROLLED RELEASE TAB PO ONE (20:15)
[2016-12-01 20:58] VITALS: BP 109/72; PULSE 76; RESP 16; O2SAT 95
[2016-12-01] MEDS ORDERED: PROM25TA10 PO (21:20)
[2016-12-01] MEDS ORDERED: CHLO10CA5 PO (21:20)
--- NOTE | 2016-12-01 21:21 | RADRPT ---
EXAM DATE/TIME: 12/01/2016 20:40 [facility] COMPARISON: No previous studies available for comparison. INDICATIONS : Short of breath and weakness. MEDICAL HISTORY : None. SURGICAL HISTORY : None. ENCOUNTER: Initial ACUITY: 1 day PAIN SCORE: 0/10 LOCATION: Bilateral chest FINDINGS: Portable AP view of the chest demonstrates a normal-sized cardiac silhouette. No effusion, consolidat ion, or pneumothorax is visualized. The bones and soft tissues demonstrate no acute abnormality. CONCLUSION: No acute cardiopulmonary abnormality is identified. Jesús Barry MD on December 01, 2016 at 21:03 Board Certified Radiologist. This report was verified electronically.
--- NOTE | 2016-12-02 13:45 | EKG ---
Date Performed: 12/01/2016 Time Performed: 18:45:38 PTAGE: 36 years EKG: SINUS TACHYCARDIA POSSIBLE RIGHT ATRIAL ENLARGEMENT POSSIBLE INFERIOR MYOCARDIAL INFARCTION ABNORMAL RHYTHM ECG NO PREVIOUS TRACING DOCTOR: Nuzhat Walters Interpretating Date/Time 12/02/2016 13:42:30
== END 2016-12-01 22:12 | disposition home or self-care (01) ==
LOC: PHED 18:44
DX: F19.20 Other psychoactive substance dependence, uncomplicated (principal); F17.210 Nicotine dependence, cigarettes, uncomplicated; R00.0 Tachycardia, unspecified; R61 Generalized hyperhidrosis; R11.2 Nausea with vomiting, unspecified; R19.7 Diarrhea, unspecified; R10.9 Unspecified abdominal pain
CPT/HCPCS: 71010; 80053; 80307; 81001; 83690; 83735; 85025; 93005; 96361; 96374; 96375; 96376; 99285; C9113; J2060; J2405; J7030

== ENCOUNTER 2017-03-05 08:32 | Emergency (ER) | payer MEDICAID ==
[~2017-03-05] VITALS: Ht 185.4 cm; Wt 81.1 kg
[~2017-03-05 08:32] MED LIST changes: -CELE20TA PO; +CHLO10CA5 PO; -CODE60 PO; +PROM25TA10 PO; -TRAZ100T4 PO; +TRAZ300T2 PO; -ZOFR4TAB PO
[2017-03-05 08:41] VITALS: BP 124/60; PULSE 78; RESP 16; TEMP 98; O2SAT 95
[2017-03-05] MEDS ORDERED: TRAZ1TAB45 PO (08:54)
[2017-03-05] MEDS ORDERED: RESP: ALBUTEROL 2.5 MG/3 ML NEB (SCH) INH ONE (09:00)
--- NOTE | 2017-03-05 09:02 | PD ---
HPI Chief Complaint: Cold / Flu Symptoms Time Seen by Provider: 08:54 Travel History International Travel<30 days: No Contact w/Intl Traveler<30days: No Traveled to known affect area: No History of Present Illness HPI 36-year-old male patient with history of smoking, bronchitis, presents to the ER today for 2 days history of coughing, cold symptoms, fevers, mild shortness of breath. He does not know any sick contacts, stays at home to take care of his 2-year-old son. He states that he is coughing so much she is having chest pains with coughing. He denies any nausea, vomiting, abdominal pains, or other symptoms. Modifying Factors: None Associated Signs & Symptoms: Coughing, shortness of breath, chest pains with coughing Risk Factors: Smoking PFSH Past Medical History Hx Anticoagulant Therapy: No Depression: Yes Diabetes: No Diminished Hearing: No Diverticulitis: Yes Musculoskeletal: Yes (Chronic right shoulder pain/brachial neuritis ) Immunizations Current: Yes Social History Alcohol Use: No (DENIES) Tobacco Use: Yes (1 PPD) Substance Use: Yes (Marijuana, Roxicodone, Klonopin today ) Allergies-Medications (Allergen,Severity, Reaction): Coded Allergies: ketorolac (Unverified Allergy, Severe, Flushed face, "makes me feel weird ", 03/05/17) imipramine (Unverified Adverse Reaction, Severe, "Makes me go crazy", 03/05) venlafaxine (Unverified Adverse Reaction, Severe, Hallucinations, 03/05/17) Reported Meds & Prescriptions Reported Meds & Active Scripts Active Reported Trazodone (Trazodone HCl) 150 Mg Tablet 150 Mg PO HS Review of Systems Except as stated in HPI: all other systems reviewed are Neg Physical Exam Narrative GENERAL: Well-developed middle age male patient currently in mild distress. Awake and oriented 3. SKIN: Focused skin assessment warm/dry. HEAD: Atraumatic. Normocephalic. EYES: Pupils equal and round. No scleral icterus. No injection or drainage. ENT: Mucosa pink and moist. Mild erythema with no exudates. No uvular edema. No uvular, palatal, or tonsillar deviation. Airway patent. NECK: Trachea midline. No JVD. CARDIOVASCULAR: Regular rate and rhythm. No murmur appreciated. RESPIRATORY: No accessory muscle use. Mild wheezing. Breath sounds equal bilaterally. GASTROINTESTINAL: Abdomen soft, non-tender, nondistended. Hepatic and splenic margins not palpable. MUSCULOSKELETAL: No obvious deformities. No clubbing. No cyanosis. No edema. NEUROLOGICAL: Awake and alert. No obvious cranial nerve deficits. Motor grossly within normal limits. Normal speech. PSYCHIATRIC: Appropriate mood and affect; insight and judgment normal. Data Data Last Documented VS Vital Signs Date Time Temp Pulse Resp B/P (MAP) Pulse Ox O2 Delivery O2 Flow Rate FiO2 03/05/17 08:41 98.0 78 16 124/60 (81) 95 Orders Orders Influenzae A/B Antigen (03/05/17 08:55) Ecg Monitoring (03/05/17 08:55) Oximetry (03/05/17 08:55) Oxygen Administration (03/05/17 08:55) Albuterol Neb (Albuterol Neb) (03/05/17 09:00) Benzonatate (Tessalon) (03/05/17 09:30) MDM Medical Decision Making Medical Screen Exam Complete: Yes Emergency Medical Condition: Yes Medical Record Reviewed: Yes Differential Diagnosis URI versus bronchitis versus pneumonia Narrative Course Influenza test is negative. Pulmonary exam did not revealing signs of crackles and considering patient's symptoms, I am more concerned about a viral pneumonitis versus URI or bronchitis rather than a pneumonia. Patient was given albuterol in the ER with some improvement symptoms but he complains of the coughing component of his symptoms which is bothering him the most. He requests cough medication in the ER. Tessalon was given. At this point, my plan would be to release him with symptomatic relief for cough and have him follow-up closely with primary care doctor. I have discussed smoking as a possible risk factor for respiratory issues with him. Patient did not offer any further comments on that issue. He should return for any worsening in symptoms as necessary. The plan has discussed with him and he states understanding. Diagnosis Primary Impression: Bronchitis Med/Other Pt SpecificInfo: Prescription(s) given Scripts Benzonatate (Tessalon Perlduke) 100 Mg Cap 100 MG PO TID Y for COUGH, #15 CAP 0 Refills Prov: Hailey Uriostegui MD 03/05/17 Albuterol 6.7 GM Inh (Proventil Hfa 6.7 GM Inh) 90 Mcg/Act Aer 2 PUFF INH Q4-6H Y for SHORTNESS OF BREATH, #1 INHALER 0 Refills Prov: Hailey Uriostegui MD 03/05/17 Azithromycin (Zithromax Z-Misael) 250 Mg Dspk 250 MG PO DIRECTED for Infection, #1 DSPK 0 Refills 500 MG (2 tabs) day 1, then 1 tab days 2-5. Prov: Hailey Uriostegui MD 03/05/17 Disposition: 01 DISCHARGE HOME Condition: Stable Hailey Uriostegui MD Mar 05, 2017 09:02
[2017-03-05] MEDS ORDERED: BENZONATATE 100 MG CAP PO ONE (09:30)
[2017-03-05] MEDS ORDERED: ALBU6.7H INH (09:49)
[2017-03-05] MEDS ORDERED: ZITHTAB PO (09:49)
[2017-03-05] MEDS ORDERED: BENZ100 PO (09:49)
== END 2017-03-05 09:53 | disposition home or self-care (01) ==
LOC: PHED 08:32
DX: J40 Bronchitis, not specified as acute or chronic (principal); F17.210 Nicotine dependence, cigarettes, uncomplicated
CPT/HCPCS: 87804; 94664; 99284; J7613

== ENCOUNTER 2017-03-23 17:22 | Emergency (ER) | payer SELFPAY ==
[~2017-03-23] VITALS: Ht 188 cm; Wt 77.8 kg
[~2017-03-23 17:22] MED LIST changes: +ALBU6.7H INH; +BENZ100 PO; -CHLO10CA5 PO; -PROM25TA10 PO; +TRAZ1TAB45 PO; -TRAZ300T2 PO; +ZITHTAB PO
[2017-03-23 17:37] VITALS: BP 143/66; PULSE 82; RESP 16; TEMP 98.3; O2SAT 97
[2017-03-23] MEDS ORDERED: TRAZ300T2 PO (18:53)
[2017-03-23 19:02] VITALS: BP 148/86; PULSE 78; RESP 16; O2SAT 97
[2017-03-23] MEDS ORDERED: SODIUM CHLOR 0.9% 1000 ML INJ 1,000 ML IV ONE (19:35)
--- NOTE | 2017-03-23 19:39 | PD ---
HPI Chief Complaint: Alcohol/Drug Intoxication Time Seen by Provider: 19:38 Travel History International Travel<30 days: No Contact w/Intl Traveler<30days: No Traveled to known affect area: No History of Present Illness HPI 36-year-old male presents to the emergency department by private transportation the care of his spouse for evaluation of alcohol withdrawal. Patient reports he has a history of alcoholism. Patient states he was 9 months sober and then 3 days ago started drinking alcohol heavily. Patient states he last drank alcohol at 12 noon today but prior to that had last had alcohol at 12 midnight. Patient had a syncopal or seizure episode shortly after drinking alcoholic patient states he did fall to the ground thinks he hit his head but immediately came to and was able to take his 2-year-old son to neighbors house call his and she came home from work and brought him to the emergency room. Patient has mild headache but denies severe headache visual disturbance neck pain change in mentation chest pain rib pain shortness of breath back pain flank pain does have abdominal pain and has history of alcoholic liver disease denies any pelvis pain or extremity pain. Patient states has developed a tremor today. Patient reports that he doesn't alcohol withdrawal very easily. Patient also reports she recently is recovering from a bronchitis and has had a cough. Patient is to tobacco use. No report of substance use. PFSH Past Medical History Hx Anticoagulant Therapy: No Depression: Yes Diabetes: No Diminished Hearing: No Diverticulitis: Yes Medical other: Yes (etoh withdrawl) Musculoskeletal: Yes (Chronic right shoulder pain/brachial neuritis ) Immunizations Current: Yes Tetanus Vaccination: > 5 Years Influenza Vaccination: No Social History Alcohol Use: Yes (last drink noon) Tobacco Use: Yes (1 PPD) Substance Use: Yes (Marijuana, ) Allergies-Medications (Allergen,Severity, Reaction): Coded Allergies: ketorolac (Unverified Allergy, Severe, Flushed face, "makes me feel weird ", 03/23/17) imipramine (Unverified Adverse Reaction, Severe, "Makes me go crazy", 04/29) venlafaxine (Unverified Adverse Reaction, Severe, Hallucinations, 03/23/17 ) Reported Meds & Prescriptions Reported Meds & Active Scripts Active Reported Trazodone (Trazodone HCl) 300 Mg Tab 300 Mg PO HS Review of Systems Except as stated in HPI: all other systems reviewed are Neg General / Constitutional: No: Fever, Chills Eyes: No: Visual changes HENT: Positive: Headaches, No: Neck Stiffness, Neck Pain Cardiovascular: No: Chest Pain or Discomfort Respiratory: Positive: Cough, No: Shortness of Breath Gastrointestinal: Positive: Abdominal Pain, No: Nausea, Vomiting Genitourinary: No: Flank Pain Musculoskeletal: No: Myalgias, Arthralgias Skin: No Rash Neurologic: Positive: Weakness, Syncope, Seizures (possible withdrawal) Psychiatric: Positive: Other (alcohol abuse) Hematologic/Lymphatic: No: Lymph Node Enlargement Physical Exam Narrative GENERAL: GCS:15 SKIN: Warm and dry. HEAD: Atraumatic. Normocephalic. EYES: Pupils equal and round. No scleral icterus. No injection or drainage. ENT: No nasal bleeding or discharge. Mucous membranes pink and moist. NECK: Trachea midline. No JVD. CARDIOVASCULAR: Regular rate and rhythm. RESPIRATORY: No accessory muscle use. Clear to auscultation. Breath sounds equal bilaterally. GASTROINTESTINAL: Abdomen soft, non-tender, nondistended. Hepatic and splenic margins not palpable. MUSCULOSKELETAL: Extremities without clubbing, cyanosis, or edema. No obvious deformities. NEUROLOGICAL: Awake and alert. No obvious cranial nerve deficits. Motor grossly within normal limits. Five out of 5 muscle strength in the arms and legs. Normal speech. PSYCHIATRIC: Appropriate mood and affect; insight and judgment normal. Data Data Last Documented VS Vital Signs Date Time Temp Pulse Resp B/P (MAP) Pulse Ox O2 Delivery O2 Flow Rate FiO2 03/23/17 21:55 82 16 123/80 (94) 98 03/23/17 19:42 Room Air 03/23/17 17:37 98.3 Orders Orders Electrocardiogram (03/23/17 19:35) Complete Blood Count With Diff (03/23/17 19:35) Comprehensive Metabolic Panel (03/23/17 19:35) Magnesium (Mg) (03/23/17 19:35) Troponin I (03/23/17 19:35) Urinalysis - C+S If Indicated (03/23/17 19:35) Chest, Single Ap (03/23/17 19:35) Ct Brain W/O Iv Contrast(Rout) (03/23/17 19:35) Ecg Monitoring (03/23/17 19:35) Iv Access Insert/Monitor (03/23/17 19:35) Oximetry (03/23/17 19:35) Sodium Chloride 0.9% Flush (Ns Flush) (03/23/17 19:45) Sodium Chlor 0.9% 1000 Ml Inj (Ns 1000 M (03/23/17 19:35) Lorazepam Inj (Ativan Inj) (03/23/17 19:45) Alcohol (Ethanol) (03/23/17 19:35) Thiamine Inj (Thiamine Inj) (03/23/17 19:45) ^ Seizure Precautions (03/23/17 19:41) Lorazepam Inj (Ativan Inj) (03/23/17 20:30) Labs Laboratory Tests Test 03/23/17 19:45 03/23/17 19:48 Urine Color YELLOW Urine Turbidity CLEAR Urine pH 5.5 Urine Specific [place] 1.022 Urine Protein NEG mg/dL Urine Glucose (UA) NEG mg/dL Urine Ketones NEG mg/dL Urine Occult Blood NEG Urine Nitrite NEG Urine Bilirubin NEG Urine Leukocyte Esterase NEG Urine WBC 0-2 /hpf Urine Squamous Epithelial Cells 0-5 /hpf Microscopic Urinalysis Comment CULT NOT INDICATED White Blood Count 7.7 TH/MM3 Red Blood Count 5.12 MIL/MM3 Hemoglobin 14.9 GM/DL Hematocrit 45.7 % Mean Corpuscular Volume 89.2 FL Mean Corpuscular Hemoglobin 29.1 PG Mean Corpuscular Hemoglobin Concent 32.7 % Red Cell Distribution Width 11.9 % Platelet Count 222 TH/MM3 Mean Platelet Volume 8.7 FL Neutrophils (%) (Auto) 48.1 % Lymphocytes (%) (Auto) 43.1 % Monocytes (%) (Auto) 7.0 % Eosinophils (%) (Auto) 0.6 % Basophils (%) (Auto) 1.2 % Neutrophils # (Auto) 3.8 TH/MM3 Lymphocytes # (Auto) 3.3 TH/MM3 Monocytes # (Auto) 0.5 TH/MM3 Eosinophils # (Auto) 0.0 TH/MM3 Basophils # (Auto) 0.1 TH/MM3 CBC Comment DIFF FINAL Differential Comment Blood Urea Nitrogen 10 MG/DL Creatinine 0.92 MG/DL Random Glucose 90 MG/DL Total Protein 7.5 GM/DL Albumin 3.9 GM/DL Calcium Level 8.9 MG/DL Magnesium Level 2.1 MG/DL Alkaline Phosphatase 45 U/L Aspartate Amino Transf (AST/SGOT) 12 U/L Alanine Aminotransferase (ALT/SGPT) 20 U/L Total Bilirubin 0.5 MG/DL Sodium Level 141 MEQ/L Potassium Level 3.8 MEQ/L Chloride Level 108 MEQ/L Carbon Dioxide Level 22.1 MEQ/L Anion Gap 11 MEQ/L Estimat Glomerular Filtration Rate 93 ML/MIN Troponin I LESS THAN 0.02 NG/ML Ethyl Alcohol Level 98 MG/DL [facility] Medical Decision Making Medical Screen Exam Complete: Yes Emergency Medical Condition: Yes Medical Record Reviewed: Yes Interpretation(s) EKG: Sinus rhythm rate [address] elevation or ectopy or injury noted; artifact is present at baseline Differential Diagnosis Syncope, seizure, or cold withdrawal, electrolyte disturbance, arrhythmia Narrative Course Patient with tremulousness placed on monitoring engineer pulse oximetry IV access obtained seizure precautions placed in exam room; imaging study ordered along with basic labs patient administered IV fluid bolus of normal saline Ativan 1 mg IV and thiamine. Review of medical records indicates patient does drink alcohol daily as well as previous substance/opiate and benzodiazepine abuse with bouts of attempting to detox himself abruptly discontinuing the medications /alcohol on his own at home. Patient remains anxious and additional dose of Ativan 1 mg IV administered Patient resting comfortably Patient complains of recurrent agitation additional dose of ativan [address] brain noncontrast reveals no acute process CBC is automated differential metabolic panel and urinalysis found to be in normal range; serum alcohol is 98 Spouse at bedside have discussed with patient with at bedside recommendation for observation admission for alcohol withdrawal patient was spouse at bedside agreeable; patient is presently clinically improved GCS remains 15 no longer tremulous. Patient appropriately conversant with spouse. Serum alcohol: 98; plan OBS for syncope and alcohol withdrawal; possible alcohol withdrawal seizure. Patient has changed his mind feels well wants to pursue outpatient resources such as [facility] for ongoing he talks support and refuses to be admitted at this time. Patient is aware that he did have some type of near syncopal or syncopal episode possible alcohol withdrawal seizure is no longer tremulous but has medication on board to support alcohol withdrawal symptoms. Patient was spouse at bedside refuses admission at this time is aware of risk benefit of staying versus the AGAINST MEDICAL ADVICE including deterioration of alcohol withdrawal. Patient again [place] and has decided to leave AGAINST MEDICAL ADVICE. Patient again encouraged to stay for observation status ongoing medication and also encouraged to pursue detox program subsequently as an outpatient. Patient again on Tuesday and has signed out AGAINST MEDICAL ADVICE. AMA: The risks of leaving against medical advice without further evaluation treatment were discussed with the patient. These risks include cardiac dysrhythmia, delirium/status epilepticus, possible stroke or . The patient indicated understanding of these risks and appeared to have the capacity to make this decision. Physician Communication Physician Communication Discussed with Dr Mahoney Diagnosis Primary Impression: Syncope Qualified Codes: R55 - Syncope and collapse Additional Impression: Alcohol withdrawal Qualified Codes: F10.239 - Alcohol dependence with withdrawal, unspecified Admitting Information Admitting Physician Requests: Observation Disposition: 07 AGAINST MEDICAL ADVICE Condition: Stable Torie Adair MD Mar 23, 2017 19:39
[2017-03-23] MEDS ORDERED: SODIUM CHLORIDE 0.9% FLUSH 10 ML FLUSH IVF PRN (19:45)
[2017-03-23] MEDS ORDERED: LORazepam 2 MG/ML VIAL IV PUSH ONE ×2 (19:45→20:30)
[2017-03-23] MEDS ORDERED: THIAMINE INJ 100 MG in SODIUM CHLORIDE 0.9% INJ 100 ML IV ONE (19:45)
--- NOTE | 2017-03-23 20:01 | RADRPT ---
EXAM DATE/TIME: 03/23/2017 19:40 [facility] COMPARISON: CHEST SINGLE AP, December 01, 2016, 20:40. INDICATIONS : Short of breath, possible seizure. MEDICAL HISTORY : None. SURGICAL HISTORY : None. ENCOUNTER: Initial ACUITY: 1 day PAIN SCORE: 0/10 LOCATION: Bilateral chest FINDINGS: A single view of the chest demonstrates the lungs to be symmetrically aerated without evidence of mas s, infiltrate or effusion. The cardiomediastinal contours are unremarkable. Osseous structures are intact. CONCLUSION: No acute disease. No significant change has occurred. Kenny Keenan MD on March 23, 2017 at 20:00 Board Certified Radiologist. This report was verified electronically.
[2017-03-23 20:13] LABS: AUTOMATED NEUTROPHIL # 3.8 TH/MM3 (1.8-7.7); BASOPHIL # 0.1 TH/MM3 (0-0.2); BASOPHIL % 1.2 % (0.0-2.0); EOSINOPHIL % 0.6 % (0.0-4.0); HEMATOCRIT 45.7 % (39.0-51.0); HEMO FLAGS DIFF FINAL; LYMPH % 43.1 % (9.0-44.0); LYMPHOCYTE # 3.3 TH/MM3 (1.0-4.8); MEAN CELL VOLUME 89.2 FL (80.0-100.0); MEAN CORPUSCULAR HEMOGLOBIN 29.1 PG (27.0-34.0); MEAN CORPUSCULAR HGB CONC 32.7 % (32.0-36.0); NEUT % 48.1 % (16.0-70.0); PLATELET COUNT 222 TH/MM3 (150-450); RED BLOOD COUNT 5.12 MIL/MM3 (4.50-5.90); RED CELL DISTRIBUTION WIDTH 11.9 % (11.6-17.2); WHITE BLOOD COUNT 7.7 TH/MM3 (4.0-11.0)
[2017-03-23 20:14] LABS: BLOOD, URINE NEG (NEG); GLUCOSE,URINE NEG (NEG); KETONE, URINE NEG (NEG); NITRITE,URINE NEG (NEG); PH, URINE 5.5 (5.0-8.5)
[2017-03-23 20:25] LABS: CHLORIDE 108 MEQ/L (98-107); POTASSIUM 3.8 MEQ/L (3.5-5.1); SODIUM (NA) 141 MEQ/L (136-145)
[2017-03-23 20:26] LABS: URINE COLOR YELLOW (YELLW/STRAW)
[2017-03-23 20:27] LABS: COMMENT (UR) CULT NOT INDICATED; CULTURE IF INDICATED CULT NOT INDICATED; SQUAMOUS EPITHELIAL CELL URINE 0-5 /hpf (0-5); WBC, URINE 0-2 /hpf (0-5)
[2017-03-23 20:29] LABS: ANION GAP 11 MEQ/L (5-15); BICARBONATE 22.1 MEQ/L (21.0-32.0); BLOOD UREA NITROGEN 10 MG/DL (7-18); MAGNESIUM 2.1 MG/DL (1.5-2.5)
[2017-03-23 20:32] LABS: ALT (GPT) 20 U/L (12-78); AST (GOT) 12 U/L (15-37); GLOMERULAR FILTRATION RATE 93 ML/MIN (>89)
[2017-03-23 20:34] LABS: TOTAL BILIRUBIN ADULT 0.5 MG/DL (0.2-1.0)
[2017-03-23 20:35] LABS: ALKALINE PHOSPHATASE 45 U/L (45-117)
[2017-03-23 21:14] LABS: ALCOHOL 98 MG/DL (0-5)
--- NOTE | 2017-03-23 21:32 | RADRPT ---
EXAM DATE/TIME: 03/23/2017 21:07 [facility] COMPARISON: CT BRAIN W/O CONTRAST, March 15, 2016, 1:21. INDICATIONS : Seizure activity. ETOH withdrawal. RADIATION DOSE: 63.79 CTDIvol (mGy) MEDICAL HISTORY : None SURGICAL HISTORY : None. ENCOUNTER: Initial ACUITY: 1 day PAIN SCALE: 0/10 LOCATION: cranial TECHNIQUE: Multiple contiguous axial images were obtained of the head. Using automated exposure control and adj ustment of the mA and/or kV according to patient size, radiation dose was kept as low as reasonably a chievable to obtain optimal diagnostic quality images. DICOM format image data is available electro nically for review and comparison. FINDINGS: CEREBRUM: The ventricles are normal for age. No evidence of midline shift, mass lesion, hemorrhage or acute in farction. No extra-axial fluid collections are seen. POSTERIOR FOSSA: The cerebellum and brainstem are intact. The 4th ventricle is midline. The cerebellopontine angle i s unremarkable. EXTRACRANIAL: The visualized portion of the orbits is intact. SKULL: The calvaria is intact. No evidence of skull fracture. CONCLUSION: Normal examination for a patient of this age. No significant change has occurred. Kenny Keenan MD on March 23, 2017 at 21:30 Board Certified Radiologist. This report was verified electronically.
[2017-03-23 21:55] VITALS: BP 123/80
--- NOTE | 2017-03-24 13:57 | EKG ---
Date Performed: 03/23/2017 Time Performed: 20:00:24 PTAGE: 36 years EKG: Sinus rhythm WITH SINUS ARRHYTHMIA NORMAL ECG Compared to PREVIOUS TRACING , the sinus tachycardia and the criteria for right atrial enlargement ar e no longer evident. PREVIOUS TRACIN12/01/2016 18.45 DOCTOR: Nuzhat Walters Interpretating Date/Time 03/24/2017 13:55:43
== END 2017-03-23 21:59 | disposition left against medical advice (07) ==
LOC: PHED 17:22
DX: R55 Syncope and collapse (principal); F10.239 Alcohol dependence with withdrawal, unspecified; F17.210 Nicotine dependence, cigarettes, uncomplicated
CPT/HCPCS: 70450; 71010; 80053; 80307; 81001; 83735; 84484; 85025; 93005; 96365; 96375; 96376; 99285; J2060; J3411; J7030

== ENCOUNTER 2017-09-19 02:37 | Emergency (ER) | payer MEDICAID ==
[~2017-09-19] VITALS: Ht 188 cm; Wt 72.9 kg
[~2017-09-19 02:37] MED LIST changes: -ALBU6.7H INH; -BENZ100 PO; -TRAZ1TAB45 PO; +TRAZ300T2 PO; -ZITHTAB PO
[2017-09-19 02:54] VITALS: BP 146/80; PULSE 74; RESP 18; TEMP 97.8; O2SAT 99
[2017-09-19] MEDS ORDERED: LORA-475 PO (10:44)
== END 2017-09-19 03:28 | disposition left against medical advice (07) ==
LOC: PHED 02:37
DX: F10.239 Alcohol dependence with withdrawal, unspecified (principal); Z53.21 Procedure and treatment not carried out due to patient leaving prior to being seen by health care provider
CPT/HCPCS: 99281

== ENCOUNTER 2017-09-19 07:07 | Emergency (ER) | payer SELFPAY ==
[~2017-09-19] VITALS: Ht 188 cm; Wt 72.8 kg
[2017-09-19 07:15] VITALS: BP 134/84; PULSE 86; RESP 16; TEMP 97.5; O2SAT 99
--- NOTE | 2017-09-19 08:08 | PD ---
HPI Chief Complaint: Alcohol/Drug Intoxication Time Seen by Provider: 08:02 Travel History International Travel<30 days: No Contact w/Intl Traveler<30days: No Traveled to known affect area: No History of Present Illness HPI This 36-year-old male is complaining of alcohol withdrawal. He has been a heavy drinker off and on for some time. He says his last drink was about 24 hours ago. He is feeling very tremulous and agitated. He does say that he has a history of bipolar disorder. He has been feeling somewhat manic recently PFSH Past Medical History Hx Anticoagulant Therapy: No Depression: Yes Diabetes: No Diminished Hearing: No Diverticulitis: Yes Musculoskeletal: Yes (Chronic right shoulder pain/brachial neuritis ) Immunizations Current: Yes Social History Alcohol Use: Yes (09/18/17) Tobacco Use: Yes (1 PPD) Substance Use: Yes (Marijuana, ) Allergies-Medications (Allergen,Severity, Reaction): Coded Allergies: ketorolac (Unverified Allergy, Severe, Flushed face, "makes me feel weird ", 09/19/17) imipramine (Unverified Adverse Reaction, Severe, "Makes me go crazy", ) venlafaxine (Unverified Adverse Reaction, Severe, Hallucinations, 09/19/17) Reported Meds & Prescriptions Reported Meds & Active Scripts Active Reported Trazodone (Trazodone HCl) 300 Mg Tab 300 Mg PO HS Review of Systems General / Constitutional: No: Fever, Chills Eyes: No: Diploplia HENT: No: Headaches Cardiovascular: Positive: Palpitations, No: Chest Pain or Discomfort Respiratory: No: Cough Gastrointestinal: Positive: Nausea, Vomiting Genitourinary: No: Frequency Skin: No Rash Neurologic: Positive: Weakness Psychiatric: Positive: Anxiety, Depression, Substance Abuse Hematologic/Lymphatic: No: Easy Bruising Physical Exam Narrative GENERAL: Well-developed male. Somewhat tremulous SKIN: Focused skin assessment warm/dry. HEAD: Atraumatic. Normocephalic. EYES: Pupils equal and round. No scleral icterus. No injection or drainage. ENT: No nasal bleeding or discharge. Mucous membranes pink and moist. NECK: Trachea midline. No JVD. CARDIOVASCULAR: Regular rate and rhythm. No murmur appreciated. RESPIRATORY: No accessory muscle use. Clear to auscultation. Breath sounds equal bilaterally. GASTROINTESTINAL: Abdomen soft, non-tender, nondistended. Hepatic and splenic margins not palpable. MUSCULOSKELETAL: No obvious deformities. No clubbing. No cyanosis. No edema. NEUROLOGICAL: Awake and alert. No obvious cranial nerve deficits. Motor grossly within normal limits. Normal speech. PSYCHIATRIC: Anxious mood. Patient denies any suicidal ideation Data Data Last Documented VS Vital Signs Date Time Temp Pulse Resp B/P (MAP) Pulse Ox O2 Delivery O2 Flow Rate FiO2 09/19/17 07:15 97.5 86 16 134/84 (101) 99 Orders Orders Complete Blood Count With Diff (09/19/17 08:05) Comprehensive Metabolic Panel (09/19/17 08:05) Magnesium (Mg) (09/19/17 08:05) Drug Screen, Random Urine (09/19/17 08:05) Alcohol (Ethanol) (09/19/17 08:05) Sodium Chlor 0.9% 1000 Ml Inj (Ns 1000 M (09/19/17 08:15) Thiamine Inj (Thiamine Inj) (09/19/17 08:15) Lorazepam Inj (Ativan Inj) (09/19/17 08:15) Electrocardiogram (09/19/17 ) Lorazepam Inj (Ativan Inj) (09/19/17 08:45) Labs Laboratory Tests Test 09/19/17 08:00 09/19/17 08:45 White Blood Count 8.6 TH/MM3 Red Blood Count 5.28 MIL/MM3 Hemoglobin 16.0 GM/DL Hematocrit 47.7 % Mean Corpuscular Volume 90.3 FL Mean Corpuscular Hemoglobin 30.3 PG Mean Corpuscular Hemoglobin Concent 33.5 % Red Cell Distribution Width 12.3 % Platelet Count 236 TH/MM3 Mean Platelet Volume 8.7 FL Neutrophils (%) (Auto) 63.1 % Lymphocytes (%) (Auto) 28.1 % Monocytes (%) (Auto) 6.8 % Eosinophils (%) (Auto) 0.4 % Basophils (%) (Auto) 1.6 % Neutrophils # (Auto) 5.5 TH/MM3 Lymphocytes # (Auto) 2.4 TH/MM3 Monocytes # (Auto) 0.6 TH/MM3 Eosinophils # (Auto) 0.0 TH/MM3 Basophils # (Auto) 0.1 TH/MM3 CBC Comment DIFF FINAL Differential Comment Blood Urea Nitrogen 17 MG/DL Creatinine 1.10 MG/DL Random Glucose 90 MG/DL Total Protein 7.9 GM/DL Albumin 4.2 GM/DL Calcium Level 9.7 MG/DL Magnesium Level 2.0 MG/DL Alkaline Phosphatase 43 U/L Aspartate Amino Transf (AST/SGOT) 12 U/L Alanine Aminotransferase (ALT/SGPT) 15 U/L Total Bilirubin 0.8 MG/DL Sodium Level 137 MEQ/L Potassium Level 3.7 MEQ/L Chloride Level 104 MEQ/L Carbon Dioxide Level 24.7 MEQ/L Anion Gap 8 MEQ/L Estimat Glomerular Filtration Rate 75 ML/MIN Ethyl Alcohol Level LESS THAN 3 MG/DL Urine Opiates Screen NEG Urine Barbiturates Screen NEG Urine Amphetamines Screen NEG Urine Benzodiazepines Screen POS Urine Cocaine Screen POS Urine Cannabinoids Screen POS MDM Medical Decision Making Medical Screen Exam Complete: Yes Emergency Medical Condition: Yes Medical Record Reviewed: Yes Differential Diagnosis Differential includes alcohol withdrawal, PSA Narrative Course Patient has been given IV fluids and Ativan with improvement. He is stable for discharge Diagnosis Primary Impression: Alcohol withdrawal Qualified Codes: F10.230 - Alcohol dependence with withdrawal, uncomplicated Scripts Lorazepam (Ativan) 2 Mg Tab 2 MG PO Q6H Y for ANXIETY AND/OR AGITATION, #8 TAB 0 Refills Prov: Wei Meléndez MD 09/19/17 Disposition: 01 DISCHARGE HOME Condition: Stable Wei Meléndez MD Sep 19, 2017 08:08
[2017-09-19 08:10] VITALS: BP 144/75; PULSE 63; RESP 16; O2SAT 100
[2017-09-19] MEDS ORDERED: THIAMINE INJ 100 MG in SODIUM CHLORIDE 0.9% INJ 100 ML IV ONE (08:15)
[2017-09-19] MEDS ORDERED: SODIUM CHLOR 0.9% 1000 ML INJ 1,000 ML IV ONE (08:15)
[2017-09-19] MEDS ORDERED: LORazepam 2 MG/ML VIAL IV PUSH ONE ×2 (08:15→08:45)
[2017-09-19 08:40] LABS: AUTOMATED NEUTROPHIL # 5.5 TH/MM3 (1.8-7.7); BASOPHIL # 0.1 TH/MM3 (0-0.2); BASOPHIL % 1.6 % (0.0-2.0); EOSINOPHIL % 0.4 % (0.0-4.0); HEMATOCRIT 47.7 % (39.0-51.0); LYMPH % 28.1 % (9.0-44.0); LYMPHOCYTE # 2.4 TH/MM3 (1.0-4.8); MEAN CELL VOLUME 90.3 FL (80.0-100.0); MEAN CORPUSCULAR HEMOGLOBIN 30.3 PG (27.0-34.0); MEAN CORPUSCULAR HGB CONC 33.5 % (32.0-36.0); MEAN PLATELET VOLUME 8.7 FL (7.0-11.0); MONO % 6.8 % (0.0-8.0); MONOCYTE # 0.6 TH/MM3 (0-0.9); NEUT % 63.1 % (16.0-70.0); PLATELET COUNT 236 TH/MM3 (150-450); RED BLOOD COUNT 5.28 MIL/MM3 (4.50-5.90); RED CELL DISTRIBUTION WIDTH 12.3 % (11.6-17.2); WHITE BLOOD COUNT 8.6 TH/MM3 (4.0-11.0)
[2017-09-19 09:01] LABS: CHLORIDE 104 MEQ/L (98-107); SODIUM (NA) 137 MEQ/L (136-145)
[2017-09-19 09:04] LABS: ALBUMIN 4.2 GM/DL (3.4-5.0); CALCIUM 9.7 MG/DL (8.5-10.1)
[2017-09-19 09:05] LABS: BICARBONATE 24.7 MEQ/L (21.0-32.0); BLOOD UREA NITROGEN 17 MG/DL (7-18); GLUCOSE,RANDOM 90 MG/DL (74-106)
[2017-09-19 09:07] LABS: ALT (GPT) 15 U/L (12-78)
[2017-09-19 09:08] LABS: AST (GOT) 12 U/L (15-37); GLOMERULAR FILTRATION RATE 75 ML/MIN (>89)
[2017-09-19 09:09] LABS: TOTAL BILIRUBIN ADULT 0.8 MG/DL (0.2-1.0); TOTAL PROTEIN 7.9 GM/DL (6.4-8.2)
[2017-09-19 09:10] VITALS: BP 140/92; PULSE 52; RESP 16; O2SAT 97
[2017-09-19 09:11] LABS: ALKALINE PHOSPHATASE 43 U/L (45-117)
[2017-09-19 10:10] VITALS: BP 117/68; PULSE 55; RESP 16; O2SAT 97
[2017-09-19] MEDS ORDERED: LORA-475 PO (10:44)
--- NOTE | 2017-09-19 15:29 | EKG ---
Date Performed: 09/19/2017 Time Performed: 07:25:40 PTAGE: 36 years EKG: Sinus rhythm Since the previous tracing, no significant change noted NORMAL ECG PREVIOUS TRACING : 03/23/2017 20.00 DOCTOR: Tri Kurtz Interpretating Date/Time 09/19/2017 15:21:06
== END 2017-09-19 11:08 | disposition home or self-care (01) ==
LOC: PHED 07:07
DX: F10.230 Alcohol dependence with withdrawal, uncomplicated (principal); F31.9 Bipolar disorder, unspecified; R00.2 Palpitations; F41.9 Anxiety disorder, unspecified; G89.29 Other chronic pain; M25.511 Pain in right shoulder; F17.200 Nicotine dependence, unspecified, uncomplicated; F12.90 Cannabis use, unspecified, uncomplicated
CPT/HCPCS: 80053; 80307; 83735; 85025; 93005; 96365; 96375; 96376; 99284; J2060; J3411; J7030

== ENCOUNTER 2018-02-16 10:59 | Inpatient (IN) ==
[2018-02-16] MEDS ORDERED: Sod Chloride 0.9% Inj 1,000 ML IV.SIG ONE (11:17)
[2018-02-16] MEDS ORDERED: Famotidine PF Inj 20 MG/2 ML Vial IV.PUSH ONE (11:17)
[2018-02-16] MEDS ORDERED: Aluminum/Magnesium/Simethacone Susp 30 ML UDC PO ONE (11:17)
[2018-02-16] MEDS ORDERED: Morphine Inj 4 MG/ML Vial IV.PUSH ONE (11:17)
--- NOTE | 2018-02-16 11:26 | ED ---
HPI General Chief Complaint: Abdominal Pain Stated Complaint: Abd Pain x 1 day Source: patient Mode of arrival: ambulatory Limitations: no limitations History of Present Illness HPI narrative: -year-old male complains of abdominal pain, nausea vomiting diarrhea. Patient has history of long-standing alcohol abuse. Patient states that he stopped drinking 3 days ago and started drinking back again this morning when the abdominal pain started. Patient states the pain burning pain sharp pain localized around epigastric area. Patient denies any pain radiation. Patient denies any palpitation diaphoresis. Patient states that he noticed intermittent blood in the stool for a long time. Patient states that he has intermittent feeling hot and cold for the past several days. Patient denies any dysuria or frequency. Patient also has history of bipolar and was on trazodone. Patient states that he stopped trazodone 3 days ago. Patient denies any illicit drug abuse. complaint: abdominal pain Onset (ago): hour(s) Pain Consistency: constant Location: epigastric Severity: moderate Severity scale (1-10): 7 Quality: sharp Radiation: none Migration to: no migration Relieving factors: nothing Exacerbating factors: nothing Associated symptoms: nausea, vomiting and diarrhea Related Data Home Medications Medication Instructions Recorded Confirmed No Known Home Medications 02/16/18 02/16/18 Allergies Allergy/AdvReac Type Severity Reaction Status Date / Time ketorolac Allergy Severe Flushed Verified 02/16/18 11:06 face, "makes me feel weird" imipramine AdvReac Severe "Makes me Verified 02/16/18 11:06 go crazy" venlafaxine AdvReac Severe Hallucinati Verified 02/16/18 11:06 ons Review of Systems ROS: all other systems reviewed are negative PMFSH Medical History Medical History Alcohol abuse (Acute) Surgical History Surgical History No history of previous surgery (Acute) Social History Social History Substance History: Active Abuse Second Hand Smoke Exposure: No Smoking Status: Heavy tobacco smoker Tobacco Type: Cigarettes How Often Do You Have a Drink Containing Alcohol: 4 or more times a week Recent Travel in [facility] within the Last 8 Weeks: No Recent Out of Country Travel within the Last 8 Weeks: No Substance Abuse Detail Alcohol: Substance Use Status: Active Route Used Substance Abuse: By Mouth Immunization History Tetanus Immunization: <5 Years Tetanus Immunization Year if Known: 2015 Hx Influenza Vaccine This Season: Yes Exam Narrative Exam Narrative: GENERAL: Well-nourished, well-developed patient. SKIN: Focused skin assessment warm/dry. HEAD: Normocephalic. EYES: No scleral icterus. No injection or drainage. NECK: Supple, trachea midline. No JVD or lymphadenopathy. CARDIOVASCULAR: Regular rate and rhythm without murmurs, gallops, or rubs. RESPIRATORY: Breath sounds equal bilaterally. No accessory muscle use. GASTROINTESTINAL: Abdomen soft, nondistended. Patient has mild to moderate tenderness on palpation epigastric area. No rebound tenderness. No mass. MUSCULOSKELETAL: No cyanosis, or edema. BACK: Nontender without obvious deformity. No CVA tenderness. Course Initial Documented Vital Signs Temperature 98.0 F 02/16/18 11:03 Pulse Rate 80 02/16/18 11:03 Respiratory Rate 16 02/16/18 11:03 Blood Pressure 131/87 02/16/18 11:03 Pulse Oximetry 96 02/16/18 11:03 Last Documented Vital Signs Temperature 98.0 F 02/16/18 11:03 Pulse Rate 65 02/16/18 11:05 Respiratory Rate 16 02/16/18 11:05 Blood Pressure 149/85 H 02/16/18 11:05 Pulse Oximetry 96 02/16/18 11:17 Medical Decision Making MDM Narrative Medical decision making narrative: 37-year-old male complains of epigastric abdominal pain, nausea vomiting diarrhea. History of alcohol abuse. Normal saline solution 1 L IV bolus. Zofran 4 mg IV. Morphine 2 mg IV. Pepcid 20 mg IV. Medical Screen Exam Complete: Yes Emergency Medical Condition: Yes Differential Diagnosis Differential Diagnosis: Differential diagnosis including gastritis, PUD, pancreatitis, cholecystitis, colitis, UTI, pyelonephritis, nephrolithiasis. Lab Data Lab results reviewed: Yes I reviewed the patient's lab results. Result diagrams: 02/16/18 11:26 02/16/18 11:26 Lab Results 02/16/18 02/16/18 02/16/18 Range/Units 11:26 11:26 11:26 CBC w Diff Auto diff final WBC 7.4 (4.0-11.0) th/mm3 RBC 5.38 (4.50-5.90) mil/mm3 Hgb 16.7 (13.0-17.0) gm/dL Hct 49.9 (39.0-51.0) % MCV 92.7 (80.0-100.0) fL MCH 31.0 (27.0-34.0) pg MCHC 33.4 (32.0-36.0) % RDW 12.1 (11.6-17.2) % Plt Count 219 (150-450) th/mm3 MPV 8.1 (7.0-11.0) fL Neut % (Auto) 59.9 (16.0-70.0) % Lymph % (Auto) 26.7 (9.0-44.0) % Terrell % (Auto) 8.9 H (0.0-8.0) % Eos % (Auto) 3.4 (0.0-4.0) % Baso % (Auto) 1.1 (0.0-2.0) % Neut # (Auto) 4.3 (1.8-7.7) th/mm3 Lymph # (Auto) 2.0 (1.0-4.8) th/mm3 [place]rell # (Auto) 0.7 (0.0-0.9) th/mm3 Eos # (Auto) 0.3 (0.0-0.4) th/mm3 Baso # (Auto) 0.1 (0.0-0.2) th/mm3 WBC Differential . Differential Comment . PT 10.1 (9.8-11.6) sec INR 1.0 Ratio APTT 28.8 (24.3-30.1) sec Sodium 137 (136-145) meq/L Potassium 4.2 (3.5-5.1) meq/L Chloride 106 (98-107) meq/L Carbon Dioxide 20.7 L (21.0-32.0) meq/L Anion Gap 10 (5-15) meq/L BUN 12 (7-18) mg/dL Creatinine 0.99 (0.60-1.30) mg/dL Estimated GFR 85 L (>89) mL/min Random Glucose 99 (74-106) mg/dL Calcium 8.9 (8.5-10.1) mg/dL Total Bilirubin 0.7 (0.2-1.0) mg/dL AST 141 H (15-37) U/L ALT 155 H (12-78) U/L Alkaline Phosphatase 38 L (45-117) U/L Total Protein 8.5 H (6.4-8.2) g/dL Albumin 4.3 (3.4-5.0) g/dL Lipase 1659 H (73-393) U/L Ur Collection Type Urine Color (Yellw/Straw) Urine Clarity (Clear) Urine pH (5.0-8.5) Ur Specific [place] (1.002-1.035) Urine Protein (Neg-Trace) mg/dL Urine Glucose (UA) (Negative) mg/dL Urine Ketones (Negative) mg/dL Urine Occult Blood (Negative) Urine Nitrate (Negative) Urine Bilirubin (Negative) Urine Urobilinogen (Less than 2) mg/dL Ur Leukocyte Esterase (Negative) Ur Squamous Epith Cells (0-5) /hpf Micro UA Comment Ur Microscopic Review Urine Culture Comments 02/16/18 Range/Units 11:48 CBC w Diff WBC (4.0-11.0) th/mm3 RBC (4.50-5.90) mil/mm3 Hgb (13.0-17.0) gm/dL Hct (39.0-51.0) % MCV (80.0-100.0) fL MCH (27.0-34.0) pg MCHC (32.0-36.0) % RDW (11.6-17.2) % Plt Count (150-450) th/mm3 MPV (7.0-11.0) fL Neut % (Auto) (16.0-70.0) % Lymph % (Auto) (9.0-44.0) % Terrell % (Auto) (0.0-8.0) % Eos % (Auto) (0.0-4.0) % Baso % (Auto) (0.0-2.0) % Neut # (Auto) (1.8-7.7) th/mm3 Lymph # (Auto) (1.0-4.8) th/mm3 [place]rell # (Auto) (0.0-0.9) th/mm3 Eos # (Auto) (0.0-0.4) th/mm3 Baso # (Auto) (0.0-0.2) th/mm3 WBC Differential Differential Comment PT (9.8-11.6) sec INR Ratio APTT (24.3-30.1) sec Sodium (136-145) meq/L Potassium (3.5-5.1) meq/L Chloride (98-107) meq/L Carbon Dioxide (21.0-32.0) meq/L Anion Gap (5-15) meq/L BUN (7-18) mg/dL Creatinine (0.60-1.30) mg/dL Estimated GFR (>89) mL/min Random Glucose (74-106) mg/dL Calcium (8.5-10.1) mg/dL Total Bilirubin (0.2-1.0) mg/dL AST (15-37) U/L ALT (12-78) U/L Alkaline Phosphatase (45-117) U/L Total Protein (6.4-8.2) g/dL Albumin (3.4-5.0) g/dL Lipase (73-393) U/L Ur Collection Type Clean catch Urine Color Yellow (Yellw/Straw) Urine Clarity Clear (Clear) Urine pH 5.5 (5.0-8.5) Ur Specific [place] Less/equal 1.005 (1.002-1.035) Urine Protein Negative (Neg-Trace) mg/dL Urine Glucose (UA) Negative (Negative) mg/dL Urine Ketones Negative (Negative) mg/dL Urine Occult Blood Negative (Negative) Urine Nitrate Negative (Negative) Urine Bilirubin Negative (Negative) Urine Urobilinogen 0.2 (Less than 2) mg/dL Ur Leukocyte Esterase Negative (Negative) Ur Squamous Epith Cells 0-5 (0-5) /hpf Micro UA Comment Culture not ind Ur Microscopic Review Microscopic reviewed Urine Culture Comments Culture not ind Imaging Data Attestation: I personally reviewed and interpreted this imaging study as follows : Radiologist's impression: Abdomen/Pelvis CT 02/16/18 11:17 CONCLUSION: No evidence of acute abdominal or pelvic process. No masses are identified. Diverticulosis without evidence of diverticulitis. Discharge Plan Discharge Disposition Patient Disposition: 30 Still Patient Discharge Details Diagnosis: Acute pancreatitis Physicians Team ED Provider: Sarkis Wang Primary Care Provider: Primary Care Physici,Alexus Rxs /Orders / Referrals /Forms Prescriptions: No Action No Known Home Medications RF: 0 Status ED Status: In Room
[2018-02-16 11:47] LABS: Baso # (Auto) 0.1 th/mm3 (0.0-0.2); Baso % (Auto) 1.1 % (0.0-2.0); Eos # (Auto) 0.3 th/mm3 (0.0-0.4); Eos % (Auto) 3.4 % (0.0-4.0); Hematocrit 49.9 % (39.0-51.0); Hemoglobin 16.7 gm/dL (13.0-17.0); Lymph % (Auto) 26.7 % (9.0-44.0); Mean Corpuscular HGB Conc 33.4 % (32.0-36.0); Mean Corpuscular Volume 92.7 fL (80.0-100.0); Mean Platelet Volume 8.1 fL (7.0-11.0); Mono # (Auto) 0.7 th/mm3 (0.0-0.9); Mono % (Auto) 8.9 % (0.0-8.0); Neut # (Auto) 4.3 th/mm3 (1.8-7.7); Neut % (Auto) 59.9 % (16.0-70.0); Platelet Count 219 th/mm3 (150-450); Red Blood Count 5.38 mil/mm3 (4.50-5.90); Red Cell Distribution Width 12.1 % (11.6-17.2); White Blood Count 7.4 th/mm3 (4.0-11.0)
[2018-02-16 11:50] LABS: Activated Partial Thrombo Time 28.8 sec (24.3-30.1); Albumin 4.3 g/dL (3.4-5.0); Calcium 8.9 mg/dL (8.5-10.1); Carbon Dioxide 20.7 meq/L (21.0-32.0); Glucose,Random 99 mg/dL (74-106); Prothrombin Time 10.1 sec (9.8-11.6)
[2018-02-16 11:53] LABS: Aspartate Aminotransferase 141 U/L (15-37); Glomerular Filtration Rate 85 mL/min (>89)
[2018-02-16 11:55] LABS: Total Protein 8.5 g/dL (6.4-8.2)
[2018-02-16 11:56] LABS: Alkaline Phosphatase 38 U/L (45-117); Lipase 1659 U/L (73-393)
[2018-02-16 11:57] LABS: Anion Gap 10 meq/L (5-15); Chloride 106 meq/L (98-107); Potassium 4.2 meq/L (3.5-5.1); Sodium 137 meq/L (136-145)
[2018-02-16] MEDS ORDERED: Morphine Sulfate Inj 2 MG/ML Vial IV.PUSH ONE (12:07)
[2018-02-16 12:11] LABS: Alanine Aminotransferase 155 U/L (12-78); Blood Urea Nitrogen 12 mg/dL (7-18)
[2018-02-16 12:11] LABS: Bilirubin,Urine Negative (Negative); Clarity,Urine Clear (Clear); Color,Urine Yellow (Yellw/Straw); Glucose,Urine (UA) Negative (Negative); Leukocyte Esterase,Urine Negative (Negative); Nitrite,Urine Negative (Negative); PH,Urine 5.5 (5.0-8.5); Specific Gravity,Urine Less/Equal 1.005 (1.002-1.035); Urobilinogen,Urine 0.2 mg/dL (Less than 2)
[2018-02-16 12:17] LABS: Squamous Epithelial Cell,Urine 0-5 /hpf (0-5)
--- NOTE | 2018-02-16 12:54 | CT ---
EXAM DATE: 02/16/2018 12:35 PM EDT AGE/SEX: 37 years / Male INDICATIONS: Epigastric pain and diarrhea. CLINICAL DATA: This is the patient's initial encounter. Patient reports that signs and symptoms have been present for 1 day and indicates a pain score of 7/10. MEDICAL/SURGICAL HISTORY: . Alcohol abuse. None. ORAL CONTRAST: No oral contrast ingested. RADIATION DOSE: 8.28 CTDI (mGy) COMPARISON: [facility], CT ABDOMEN & PELVIS W CONTRAST, 08/09/2016. . TECHNIQUE: Multiple contiguous axial images were obtained through the abdomen and pelvis following b olus infusion of 90 ml Omnipaque 350 (iohexol) nonionic water-soluble contrast as a single exam dos e. No oral contrast ingested. Using automated exposure control and adjustment of the mA and/or kV ac cording to patient size, radiation dose was kept as low as reasonably achievable to obtain optimal di agnostic quality images. DICOM format image data is available electronically for review and comparis on. FINDINGS: Examination of the lung bases demonstrates no abnormality. No pleural fluid is identified. No pulmona ry nodules are present. The liver and spleen are free of focal defects. The gallbladder and pancreas demonstrate no abnormality. The adrenal glands are normal. The kidneys demonstrate no evidence of loren id renal mass or hydronephrosis. No free fluid or abdominal masses are identified. No para-aortic delmy nopathy is seen. The appendix is identified and appears normal. Examination of the pelvis demonstrates no evidence of free fluid or pelvic mass. No abnormally enlarg ed inguinal or retroperitoneal lymph nodes are present. The bladder is unremarkable. There is diverti culosis without evidence of diverticulitis. CONCLUSION: No evidence of acute abdominal or pelvic process. No masses are identified. Diverticulosis without ev idence of diverticulitis. Electronically signed by: Christiano Cobian MD 02/16/2018 12:52 PM EDT
[2018-02-16] MEDS ORDERED: Acetaminophen 325 MG Tablet PO PRN (13:31)
[2018-02-16] MEDS ORDERED: Bisacodyl 10 MG Supp RECTAL PRN (13:31)
[2018-02-16] MEDS ORDERED: Enoxaparin Inj 40 MG/0.4 ML Syringe SQ SCH (14:00)
[2018-02-16] MEDS: Sod Chloride 0.9% Inj 1,000 ML IV.CONT SCH ×2 (14:40→18:46)
--- NOTE | 2018-02-16 14:51 | US ---
EXAM DATE: 02/16/2018 2:48 PM EDT AGE/SEX: 37 years / Male INDICATIONS: Right upper quadrant pain. CLINICAL DATA: This is the patient's initial encounter. Patient reports that signs and symptoms have been present for 1 day and indicates a pain score of 5/10. MEDICAL/SURGICAL HISTORY: . Alcohol abuse. None. COMPARISON: [facility], CT ABDOMEN & PELVIS W CONTRAST, 02/16/2018. . MEASUREMENTS: Liver:__ 15.5 cm. Common Bile Duct:__ 4mm. FINDINGS: Liver: Increased echotexture without focal lesion or ductal dilation. Portal Vein: Hepatopedal flow seen in portal vein. Common Duct: No intraluminal mass or stone visualized. Gallbladder: Demonstrates no wall thickening or pericholecystic fluid. No stones visualized. Pancreas: The visualized portions are within normal limits Right Kidney: Normal echotexture and cortical thickness. No mass or hydronephrosis. Other: CONCLUSION: Focally unremarkable sonographic appearance of the right upper quadrant Electronically signed by: Jesús Lujan MD 02/16/2018 2:49 PM EDT
[2018-02-16] MEDS ORDERED: Haloperidol Inj 5 MG/ML Ampul IV.PUSH PRN (15:10)
--- NOTE | 2018-02-16 15:15 | P.HP ---
History of Present Illness Primary Care Physician: No Primary Care Physician Chief Complaint: abdominal pain History of Present Illness: 37-year-old male with known history of bipolar disorder, alcoholism who presented to the hospital because of abdominal pain, nausea vomiting. Patient has a rather complex medical history and he has been on trazodone for years at 300 mg at bedtime, however he ran out of medications a couple weeks ago in which at that time he had [facility] in which she got off alcohol in them when he was released from there approximately 2 days after that he started drinking again. Patient has been drinking up to 2 days ago when he decided to stop drinking alcohol again. Patient started going through withdrawals and this morning he woke up in new he was going into DTs. Patient started having nausea vomiting early this morning and then he drank 25 ounces of malt liquor to try to calm his nerves and withdrawals. However it did not help so he came to the emergency department for evaluation. Patient had workup done emergency department and found to have elevated lipase level, signs of alcohol withdrawal and was recommended by the ER physician the patient be admitted for further evaluation and management. - Diagnosis (1) Acute pancreatitis Inpatient Certification: I certify that the inpatient services were ordered in accordance with Medicare regulations governing the order. This includes certification that hospital inpatient services are reasonable and necessary and in the case of services not specified as inpatient-only under 42 CFR 419.22(n), that they are appropriately provided as inpatient services in accordance to with the 2-midnight benchmark under 43 CFR 412.3(e) Estimated Total Length of Stay (Days): 3 Plans for Post Hospital Care: Home Review of Systems All other systems reviewed negative except as stated in HPI Gastrointestinal: Reports abdominal pain, Reports nausea, Reports vomiting PMFSH - History History Provided By: Patient - Medical History Medical History: Medical History (Last Updated 02/16/18 @ 15:14 by MARIA ELENA Crockett) Bipolar disorder Alcohol abuse - Surgical History Surgical History: Surgical History (Last Reviewed 02/16/18 @ 11:24 by Sarkis Wang MD) No history of previous surgery - Family History Family History: Family History (Last Updated 02/16/18 @ 15:14 by MARIA ELENA Crockett) Father History of heart disease - Tobacco History Second Hand Smoke Exposure: No Tobacco Use In Past 30 Days: Yes Smoking Status: Heavy tobacco smoker Tobacco Type: Cigarettes - Alcohol History How Often Do You Have a Drink Containing Alcohol: 4 or more times a week - Substance Use History Substance History: Active Abuse - Substance Use Type Alcohol Status: Active Route Used: By Mouth Frequency: 4 or more times a week - Travel History Recent Travel in the [place] Within the Last 8 Weeks: No Recent Travel Out of the Country Within the Last 8 Weeks: No - Immunization History Tetanus Immunization: <5 Years Tetanus Immunization Year if Known: 2015 Hx Influenza Vaccine This Season: Yes Medications and Allergies Active Medications: Active Medications Acetaminophen (Tylenol) 650 mg PO Q4H PRN PRN Reason: Fever, headache, pain 1-5 Hydrocodone Bitart/Acetaminophen ([place] 7.5/325) 1 tab PO Q6H PRN PRN Reason: Pain 6-10. Last Admin: 02/16/18 14:37 Dose: 1 tab Al Hydroxide/Mg Hydroxide (Milk Of Magnesia Liq) 30 ml PO Q12H PRN PRN Reason: Mild Constipation Bisacodyl (Dulcolax Supp) 10 mg RECTAL DAILY PRN PRN Reason: SEVERE CONSITIPATION Enoxaparin Sodium (Lovenox Inj) 40 mg SQ Q24H [facility] Last Admin: 02/16/18 13:50 Dose: 40 mg Flumazenil (Romazecon Inj) 0.2 mg IV.PUSH Q1M PRN PRN Reason: OVERSEDATION Haloperidol Lactate (Haldol Inj) 1 mg IV.PUSH Q15M PRN PRN Reason: for severe agitation Sodium Chloride (Ns Inj) 1,000 mls @ 200 mls/hr IV.CONT .Q5H [facility] Stop: 02/17/18 13:44 Last Admin: 02/16/18 14:40 Dose: 200 mls/hr Lactulose (Lactulose Liq) 30 ml PO DAILY PRN PRN Reason: SEVERE CONSITIPATION Lorazepam (Ativan) 1 mg PO Q4H PRN PRN Reason: for CIWA 8-10 Lorazepam (Ativan Inj) 2 mg IV.PUSH Q2H PRN PRN Reason: for CIWA 11-14 Lorazepam (Ativan Inj) 2 mg IV.PUSH Q1H PRN PRN Reason: for CIWA 15-20 Lorazepam (Ativan Inj) 2 mg IV.PUSH Q15M PRN PRN Reason: for CIWA > 20 Lorazepam (Ativan Inj) 1 mg IV.PUSH Q4H PRN PRN Reason: for CIWA 8-10 Lorazepam (Ativan) 2 mg PO Q2H PRN PRN Reason: for CIWA 11-14 Morphine Sulfate (Morphine Inj) 4 mg IV.PUSH Q4H PRN PRN Reason: BREAKTHROUGH PAIN Ondansetron HCl (Zofran Inj) 4 mg IV.PUSH Q6H PRN PRN Reason: NAUSEA OR VOMITING Sennosides (Senokot) 17.2 mg PO Q12H PRN PRN Reason: Moderate Constipation Allergies Allergy/AdvReac Type Severity Reaction Status Date / Time ketorolac Allergy Severe Flushed Verified 02/16/18 11:06 face, "makes me feel weird" imipramine AdvReac Severe "Makes me Verified 02/16/18 11:06 go crazy" venlafaxine AdvReac Severe Hallucinati Verified 02/16/18 11:06 ons Home Medications Medication Instructions Recorded Confirmed Type No Known Home Medications 02/16/18 02/16/18 History Exam Vital signs: Vital Signs 02/16/18 11:03 02/16/18 11:05 02/16/18 11:17 Temperature 98.0 F Pulse Rate 80 65 Respiratory Rate 16 16 Blood Pressure 131/87 149/85 H Pulse Oximetry 96 95 96 Intake & Output 02/15/18 02/16/18 02/16/18 18:59 06:59 18:59 Intake Total 1000 / 1000 Balance 1000 / 1000 Weight 79.3 kg Intake: IV 1000 / 1000 NS Inj 1,000 ML @ Wide Open IV. 1000 / 1000 SIG BOLUS ONE Rx#:[id number] Narrative: GENERAL: Well-developed, well-nourished, in no acute distress. alert and orientated HEENT: Head is normocephalic without any lesions or masses noted. Facial features are symmetric. Eyes: Pupils equal round reactive to light. Extraocular muscles are intact. Conjunctivae were clear. Oropharyngeal: Pharynx without any erythema edema. Tongue is midline without deviation. Buccal mucosa is moist without any masses or lesions NECK: Supple without any masses. Trachea midline no deviation. No JVD, no bruits are appreciated CARDIAC: Regular rhythm, regular rate. S1/S2 are heard. No murmurs gallops or rubs. LUNGS: Clear to auscultation bilaterally. No wheeze, rhonchi or rales. No use of accessory muscles on inspiration or expiration. ABDOMEN: Soft, diffuse abdominal tenderness. Nondistended. Bowel sounds heard in all 4 quadrants. No organomegaly or masses. Negative rebound, negative guarding EXTREMITIES: No edema, pulses are equal bilaterally. No cyanosis or clubbing NEUROLOGY: Mood and affect appear appropriate. Cranial nerves II through XII grossly intact. Muscle strength 5/5 in upper and lower extremities bilaterally. Deep tendon reflexes are 2+ in upper and lower extremities bilaterally. 2+ extremity tremors Results - Labs CBC & Chem 7: 02/16/18 11:26 02/16/18 11:26 Labs: Laboratory Results - last 24 hr 02/16/18 02/16/18 02/16/18 11:26 11:26 11:26 CBC w Diff Auto diff final WBC 7.4 RBC 5.38 Hgb 16.7 Hct 49.9 MCV 92.7 MCH 31.0 MCHC 33.4 RDW 12.1 Plt Count 219 MPV 8.1 Neut % (Auto) 59.9 Lymph % (Auto) 26.7 [place] % (Auto) 8.9 H Eos % (Auto) 3.4 Baso % (Auto) 1.1 Neut # (Auto) 4.3 Lymph # (Auto) 2.0 [place] # (Auto) 0.7 Eos # (Auto) 0.3 Baso # (Auto) 0.1 WBC Differential . Differential Comment . PT 10.1 INR 1.0 APTT 28.8 Sodium 137 Potassium 4.2 Chloride 106 Carbon Dioxide 20.7 L Anion Gap 10 BUN 12 Creatinine 0.99 Estimated GFR 85 L Random Glucose 99 Calcium 8.9 Total Bilirubin 0.7 AST 141 H ALT 155 H Alkaline Phosphatase 38 L Total Protein 8.5 H Albumin 4.3 Lipase 1659 H Ur Collection Type Urine Color Urine Clarity Urine pH Ur Specific [place] Urine Protein Urine Glucose (UA) Urine Ketones Urine Occult Blood Urine Nitrate Urine Bilirubin Urine Urobilinogen Ur Leukocyte Esterase Ur Squamous Epith Cells Micro UA Comment Ur Microscopic Review Urine Culture Comments 02/16/18 11:48 CBC w Diff WBC RBC Hgb Hct MCV MCH MCHC RDW Plt Count MPV Neut % (Auto) Lymph % (Auto) [place] % (Auto) Eos % (Auto) Baso % (Auto) Neut # (Auto) Lymph # (Auto) [place] # (Auto) Eos # (Auto) Baso # (Auto) WBC Differential Differential Comment PT INR APTT Sodium Potassium Chloride Carbon Dioxide Anion Gap BUN Creatinine Estimated GFR Random Glucose Calcium Total Bilirubin AST ALT Alkaline Phosphatase Total Protein Albumin Lipase Ur Collection Type Clean catch Urine Color Yellow Urine Clarity Clear Urine pH 5.5 Ur Specific [place] Less/equal 1.005 Urine Protein Negative Urine Glucose (UA) Negative Urine Ketones Negative Urine Occult Blood Negative Urine Nitrate Negative Urine Bilirubin Negative Urine Urobilinogen 0.2 Ur Leukocyte Esterase Negative Ur Squamous Epith Cells 0-5 Micro UA Comment Culture not ind Ur Microscopic Review Microscopic reviewed Urine Culture Comments Culture not ind - Imaging Impressions Gallbladder Ultrasound 02/16/18 00:00 CONCLUSION: Focally unremarkable sonographic appearance of the right upper quadrant Abdomen/Pelvis CT 02/16/18 11:17 CONCLUSION: No evidence of acute abdominal or pelvic process. No masses are identified. Diverticulosis without evidence of diverticulitis. Caprini VTE Risk Assessment Caprini VTE Risk Assessment: No/Low Risk (score <= 1) Caprini Risk Assessment Model: Point Value = 1 Point Value = 2 Point Value = 3 Point Value = 5 Age 41-60 Minor surgery BMI > 25 kg/m2 Swollen legs Varicose veins or History of unexplained or recurrent spontaneous Oral contraceptives or hormone replacement Sepsis (< 1 month) Serious lung disease, including pneumonia (< 1 month) Abnormal pulmonary function Acute myocardial infarction Congestive heart failure (< 1 month) History of inflammatory bowel disease Medical patient at bed rest Age 61-74 Arthroscopic surgery Major open surgery (> 45 min) Laparoscopic surgery (> 45 min) Malignancy Confined to bed (> 72 hours) Immobilizing plaster cast Central venous access Age >= 75 History of VTE Family history of VTE Factor V Leiden Prothrombin [id number] Lupus anticoagulant Anticardiolipin antibodies Elevated serum homocysteine Heparin-induced thrombocytopenia Other congenital or acquired thrombophilia Stroke (< 1 month) Elective arthroplasty Hip, pelvis, or leg fracture Acute spinal cord injury (< 1 month) Prophylaxis Regimen: Total Risk Factor Score Risk Level Prophylaxis Regimen 0-1 Low Early ambulation 2 Moderate Order ONE of the following: *Sequential Compression Device (SCD) *Heparin 5000 units SQ BID 3-4 Higher Order ONE of the following medications: *Heparin 5000 units SQ TID *Enoxaparin/Lovenox 40 mg SQ daily (WT < 150 kg, CrCl > 30 mL/min) *Enoxaparin/Lovenox 30 mg SQ daily (WT < 150 kg, CrCl > 10-29 mL/min) *Enoxaparin/Lovenox 30 mg SQ BID (WT < 150 kg, CrCl > 30 mL/min) AND/OR *Sequential Compression Device (SCD) 5 or more Highest Order ONE of the following medications: *Heparin 5000 units SQ TID (Preferred with Epidurals) *Enoxaparin/Lovenox 40 mg SQ daily (WT < 150 kg, CrCl > 30 mL/min) *Enoxaparin/Lovenox 30 mg SQ daily (WT < 150 kg, CrCl > 10-29 mL/min) *Enoxaparin/Lovenox 30 mg SQ BID (WT < 150 kg, CrCl > 30 mL/min) AND *Sequential Compression Device (SCD) Assessment and Plan - Assessment (1) Acute pancreatitis Code(s): K85.90 - Acute pancreatitis without necrosis or infection, unspecified Status: Acute - Plan Acute pancreatitis -Likely secondary to chronic alcoholism, however will check triglyceride level -Continue supportive care with IV fluids, n.p.o., pain control -CT scan does not indicate any acute abnormality of the pancreas -Continue to trend lipase level Alcohol withdrawal -Start thiamine and folic acid -[facility] protocol -Patient counseled on cessation Bipolar disorder -We will start trazodone 100 mg at bedtime DVT prevention -Subcutaneous Lovenox (1) Acute pancreatitis Qualifiers: Pancreatitis type: alcohol induced Acute pancreatitis complication: no infection or necrosis Qualified Code(s): K85.20 - Alcohol induced acute pancreatitis without necrosis or infection
[2018-02-16] MEDS: LORazepam 1 MG Tablet PO PRN ×2 (16:09→23:14)
[2018-02-16] MEDS: Folic Acid 1 MG Tablet PO SCH (16:09)
[2018-02-16] MEDS: Morphine Inj 4 MG/ML Vial IV.PUSH PRN ×2 (17:50→22:38)
[2018-02-16] MEDS ORDERED: traZODone 100 MG Tablet PO SCH (21:00)
[2018-02-17] MEDS: Morphine Inj 4 MG/ML Vial IV.PUSH PRN ×2 (04:12→08:08)
[2018-02-17] MEDS: Sod Chloride 0.9% Inj 1,000 ML IV.CONT SCH ×4 (04:12→09:59)
[2018-02-17 06:36] LABS: Chloride 107 meq/L (98-107); Potassium 3.6 meq/L (3.5-5.1); Sodium 141 meq/L (136-145)
[2018-02-17 07:21] LABS: Alanine Aminotransferase 109 U/L (12-78); Albumin 3.5 g/dL (3.4-5.0); Alkaline Phosphatase 30 U/L (45-117); Anion Gap 10 meq/L (5-15); Aspartate Aminotransferase 72 U/L (15-37); Blood Urea Nitrogen 11 mg/dL (7-18); Carbon Dioxide 24.2 meq/L (21.0-32.0); Glomerular Filtration Rate 89 mL/min (>89); Glucose,Random 66 mg/dL (74-106); Lipase 110 U/L (73-393); Total Protein 6.7 g/dL (6.4-8.2)
[2018-02-17 08:06] VITALS: O2SAT 100
[2018-02-17] MEDS: Folic Acid 1 MG Tablet PO SCH (08:06)
--- NOTE | 2018-02-17 11:12 | P.PN ---
Subjective Interval history: 37-year-old male who is seen and examined today for follow-up on pancreatitis, abdominal pain, alcohol withdrawal. Patient resting in bed comfortably. States that he is feeling much better. States that he is very hungry and would like to eat. Vital signs are stable. Patient remains afebrile. Physical Exam Vital signs: Vital Signs 02/16/18 11:17 02/16/18 17:19 02/16/18 20:00 Temperature 97.2 F L 97.9 F Pulse Rate 62 59 L Respiratory Rate 18 16 Blood Pressure 124/70 143/82 H Pulse Oximetry 96 99 96 02/17/18 00:00 02/17/18 08:00 Temperature 97.8 F 96 F L Pulse Rate 63 61 Respiratory Rate 16 17 Blood Pressure 138/81 144/85 H Pulse Oximetry 99 100 Intake & Output 02/16/18 02/17/18 02/17/18 18:59 06:59 18:59 Intake Total 1999 / 1999 1000 / 1000 Balance 1999 1000 / 1000 Weight 79.3 kg 78.9 kg Intake: IV 1999 / 1999 1000 / 1000 NS Inj 1,000 ML @ 200 mls/hr IV 1000 / 1000 1999 / 1999 1000 / 1000 .CONT .Q5H DANNA Rx#:[id number] NS Inj 1,000 ML @ Wide Open IV. 1000 / 1000 SIG BOLUS ONE Rx#:[id number] Other: # Voids 3 4 Date of Last Bowel Movement 02/15/18 02/15/18 # Bowel Movements 0 Narrative: GENERAL: Well-developed, well-nourished, in no acute distress. alert and orientated HEENT: Head is normocephalic without any lesions or masses noted. Facial features are symmetric. Eyes: Extraocular muscles are intact. Conjunctivae were clear. NECK: Supple without any masses. Trachea midline no deviation. No JVD, CARDIAC: Regular rhythm, regular rate. S1/S2 are heard. No murmurs gallops or rubs. LUNGS: Clear to auscultation bilaterally. No wheeze, rhonchi or rales. No use of accessory muscles on inspiration or expiration. ABDOMEN: Soft, nontender. Nondistended. Bowel sounds heard in all 4 quadrants. No organomegaly or masses. Negative rebound, negative guarding EXTREMITIES: No edema, pulses are equal bilaterally. No cyanosis or clubbing NEUROLOGY: Mood and affect appear appropriate. Cranial nerves II through XII grossly intact. Results - Labs CBC & Chem 7: 02/16/18 11:26 02/17/18 05:45 Laboratory Results - last 24 hr 02/16/18 02/16/18 02/16/18 11:26 11:26 11:26 CBC w Diff Auto diff final WBC 7.4 RBC 5.38 Hgb 16.7 Hct 49.9 MCV 92.7 MCH 31.0 MCHC 33.4 RDW 12.1 Plt Count 219 MPV 8.1 Neut % (Auto) 59.9 Lymph % (Auto) 26.7 [place] % (Auto) 8.9 H Eos % (Auto) 3.4 Baso % (Auto) 1.1 Neut # (Auto) 4.3 Lymph # (Auto) 2.0 [place] # (Auto) 0.7 Eos # (Auto) 0.3 Baso # (Auto) 0.1 WBC Differential . Differential Comment . PT 10.1 INR 1.0 APTT 28.8 Sodium 137 Potassium 4.2 Chloride 106 Carbon Dioxide 20.7 L Anion Gap 10 BUN 12 Creatinine 0.99 Estimated GFR 85 L Random Glucose 99 Calcium 8.9 Total Bilirubin 0.7 AST 141 H ALT 155 H Alkaline Phosphatase 38 L Total Protein 8.5 H Albumin 4.3 Triglycerides Lipase 1659 H Ur Collection Type Urine Color Urine Clarity Urine pH Ur Specific [place] Urine Protein Urine Glucose (UA) Urine Ketones Urine Occult Blood Urine Nitrate Urine Bilirubin Urine Urobilinogen Ur Leukocyte Esterase Ur Squamous Epith Cells Micro UA Comment Ur Microscopic Review Urine Culture Comments 02/16/18 02/16/18 02/17/18 11:26 11:48 05:45 CBC w Diff WBC RBC Hgb Hct MCV MCH MCHC RDW Plt Count MPV Neut % (Auto) Lymph % (Auto) [place] % (Auto) Eos % (Auto) Baso % (Auto) Neut # (Auto) Lymph # (Auto) [place] # (Auto) Eos # (Auto) Baso # (Auto) WBC Differential Differential Comment PT INR APTT Sodium 141 Potassium 3.6 Chloride 107 Carbon Dioxide 24.2 Anion Gap 10 BUN 11 Creatinine 0.95 Estimated GFR 89 Random Glucose 66 L Calcium 8.0 L D Total Bilirubin 0.7 AST 72 H ALT 109 H Alkaline Phosphatase 30 L Total Protein 6.7 D Albumin 3.5 D Triglycerides 175 H Lipase 110 Ur Collection Type Clean catch Urine Color Yellow Urine Clarity Clear Urine pH 5.5 Ur Specific [place] Less/equal 1.005 Urine Protein Negative Urine Glucose (UA) Negative Urine Ketones Negative Urine Occult Blood Negative Urine Nitrate Negative Urine Bilirubin Negative Urine Urobilinogen 0.2 Ur Leukocyte Esterase Negative Ur Squamous Epith Cells 0-5 Micro UA Comment Culture not ind Ur Microscopic Review Microscopic reviewed Urine Culture Comments Culture not ind - Imaging Impressions Gallbladder Ultrasound 02/16/18 00:00 CONCLUSION: Focally unremarkable sonographic appearance of the right upper quadrant Abdomen/Pelvis CT 02/16/18 11:17 CONCLUSION: No evidence of acute abdominal or pelvic process. No masses are identified. Diverticulosis without evidence of diverticulitis. Assessment and Plan - Assessment (1) Acute pancreatitis Code(s): K85.90 - Acute pancreatitis without necrosis or infection, unspecified Status: Acute - Plan Acute pancreatitis, resolved -Likely secondary to chronic alcoholism, however will check triglyceride level -Continue supportive care with IV fluids, pain control -CT scan does not indicate any acute abnormality of the pancreas -Continue to trend lipase level, which has returned to normal -Advance diet as tolerated Alcohol withdrawal -Continue thiamine and folic acid -[facility] protocol -Patient counseled on cessation Bipolar disorder -Continue trazodone 100 mg at bedtime DVT prevention -Subcutaneous Lovenox Discharge Planning: Discharge home in stable condition Activity: Ad lucy. Diet: Regular diet Medication per medication reconciliation Follow-up with primary medical doctor in 1 week (1) Acute pancreatitis Qualifiers: Pancreatitis type: alcohol induced Acute pancreatitis complication: no infection or necrosis Qualified Code(s): K85.20 - Alcohol induced acute pancreatitis without necrosis or infection
[2018-02-17 14:47] VITALS: BP 138/87; PULSE 60; RESP 15; TEMP 97.8
== END 2018-02-17 13:22 | disposition home or self-care (01) ==
LOC: PHED 10:59 → PHEDA 13:31 → PH3 14:12
PROVIDERS: ADMIT Hospitalist; ATTEND Hospitalist